=== PATIENT | female | born 1955 | race Caucasian/White ===

== ENCOUNTER 2016-10-02 12:34 | Inpatient (IN) | payer OTHER ==
[~2016-10-02] VITALS: Ht 177.8 cm; Wt 43.9 kg
[~2016-10-02 12:34] MED LIST: AMLO-147 PO; ASPI-664 PO; ATOR40TA68 PO; CARV6.2579 PO; LISI20TA11 PO; MONT10TA24 PO; ONDA4TAB14 PO; PARO-37 PO
[2016-10-02] MEDS ORDERED: SOD CHLORIDE 0.9% 500 ML IV STA (12:41)
[2016-10-02] MEDS ORDERED: CEFEPIME 2GM/50 ML (PMX) 50 ML IVPB STA (12:41)
[2016-10-02] MEDS ORDERED: SOD CHLORIDE 0.9% 1,000 ML IV STA (12:41)
[2016-10-02] MEDS ORDERED: VANCOMYCIN 1 GM (PMX) 250 ML IVPB ONE (13:00)
[2016-10-02] MEDS ORDERED: METF-382 PO (13:06)
[2016-10-02 13:41] LABS: BASOPHILS % 0.3 % (0.0-2.0); EOSINOPHILS % 0.1 % (0.0-7.0); HEMATOCRIT 33.5 % (37.0-47.0); HEMOGLOBIN 10.7 g/dl (12.0-16.0); LYMPHOCYTES % 29.2 % (15.0-51.0); MEAN CORPUSCULAR HEMOGLOBIN 29.4 pg (29.0-33.0); MEAN CORPUSCULAR VOLUME 91.8 fl (82.0-101.0); MEAN PLATELET VOLUME 7.4 fl (7.4-10.4); MONOCYTE # 0.1 10^3/ul (0.3-0.9); MONOCYTES % 3.9 % (0.0-11.0); NEUTROPHIL # 2.4 10^3/ul (1.6-7.5); NEUTROPHILS % 66.5 % (39.0-77.0); PLATELET COUNT 340 10^3/UL (140-440); RED BLOOD COUNT 3.65 10^6/ul (4.20-5.40); RED CELL DISTRIBUTION WIDTH 18.1 % (11.5-14.5); UNCORRECTED WBC 3.6 10^3/ul (4.8-10.8); WHITE BLOOD COUNT 3.6 10^3/ul (4.8-10.8)
[2016-10-02 13:50] LABS: ALBUMIN 2.6 g/dl (3.3-4.9); CHLORIDE 91 mmol/L (97-110); SODIUM 130 mmol/L (135-144)
[2016-10-02 13:51] LABS: POTASSIUM 4.9 mmol/L (3.5-5.1)
[2016-10-02 13:53] LABS: ALANINE AMINOTRANSFERASE 67 IU/L (13-69); ALBUMIN/GLOBULIN RATIO 0.55; ALKALINE PHOSPHATASE 83 IU/L (42-121); ANION GAP 11 (8-16); ASPARTATE AMINO TRANSFERASE 85 IU/L (15-46); BILIRUBIN,INDIRECT 0.1 mg/dl (0-1.1); BILIRUBIN,TOTAL 0.1 mg/dl (0.2-1.3); BLOOD UREA NITROGEN 19 mg/dl (7-20); CARBON DIOXIDE 33 mmol/L (21-31); CREATININE 0.26 mg/dl (0.44-1.00); GLUCOSE 79 mg/dl (70-220); TOTAL PROTEIN 7.3 g/dl (6.1-8.1)
[2016-10-02 13:54] LABS: CALCIUM 8.1 mg/dl (8.4-10.2)
[2016-10-02 13:56] LABS: CONDITION 1; LH ANALYZER COMMENTS 1
--- NOTE | 2016-10-02 13:57 | RADRPT ---
PROCEDURE: CT head CLINICAL INDICATION: Altered mental status. Sepsis. TECHNIQUE: Contiguous 2.5 mm axial images were obtained from the vertex to the skull base. No int ravenous contrast was administered. The calculated dose length product (DLP) = 630.2 mGy-cm. The CTDlvol = 44.97 mGy. One or more of the following dose reduction techniques were used: Automated ex posure control, adjustment of the mA and or KV according to patient size, or use of iterative recons truction technique. COMPARISON: 05/22/2016 FINDINGS: There is no acute intracranial hemorrhage or acute territorial infarct. No mass or mass effect is s een on this noncontrast study. As before there are bilateral basal ganglia, bilateral thalamic, rig ht pontine, and left cerebellar lacunar infarcts. No mass or mass effect is seen on this noncontras t study. There has advance for age cortical and central atrophy. Ventricles are prominent of propo rtion to degree of atrophy. 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 Note the ventricul ar size is unchanged from previous exam. There is questionable mucosal changes in the right maxilla ry sinus which is and partially visualized. Remaining paranasal sinuses are clear. There is probab le previous sinus surgery. The bony calvarium is unremarkable. Extensive bilateral carotid and radha tebral artery calcification is seen. IMPRESSION: 1. No acute intracranial hemorrhage or acute territorial infarct. 2. Multiple bilateral basal ganglial, bilateral thalamic, left cerebellar, and right pontine lacuna r infarcts. 3. Advance for age cortical and central atrophy. 4. Prominent ventricles. 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 5. Moderate cerebral arterial sclerosis RPTAT: HH .Jeremy Rodrigues MD, MD Date Time Electronically viewed and signed by .Jeremy Rodrigues MD, MD on 10/02/2016 13:56 .W/
[2016-10-02 14:00] LABS: INR 1.14; PROTIME 14.6 Sec (12.2-14.2); PT RATIO 1.1
[2016-10-02 14:01] LABS: PARTIAL THROMBOPLASTIN TIME 27.7 Sec (25.0-35.0)
[2016-10-02 14:18] LABS: TROPONIN-I < 0.012 ng/ml (0.00-0.12)
[2016-10-02 14:21] LABS: ADD UMIC NO; URINE BILIRUBIN (Dip) NEGATIVE (NEGATIVE); URINE BLOOD (Dip) NEGATIVE (NEGATIVE); URINE COLOR LT. YELLOW (YELLOW); URINE GLUCOSE (Dip) NEGATIVE (NEGATIVE); URINE KETONES (Dip) NEGATIVE (NEGATIVE); URINE LEUKOCYTE ESTERASE (Dip) NEGATIVE (NEGATIVE); URINE NITRITE (Dip) NEGATIVE (NEGATIVE); URINE TOTAL PROTEIN (Dip) NEGATIVE (NEGATIVE); URINE UROBILINOGEN (Dip) 1.0 E.U./dL (0.1-1.0)
[2016-10-02] MEDS ORDERED: ONDANSETRON 4 MG INJ IV PRN ×2 (14:30→16:30)
[2016-10-02] MEDS ORDERED: ACETAMINOPHEN 325 MG TAB PO PRN ×2 (14:30→16:30)
[2016-10-02] MEDS ORDERED: hydrALAzine 20 MG INJ IV ONE (14:30)
--- NOTE | 2016-10-02 14:34 | ERA ---
ER Documentation Chief Complaint Date/Time DATE: 10/02/16 TIME: 14:31 Chief Complaint Altered HPI Patient is a 61-year-old female with previous stroke who presents altered. Please note the history and physical exam is limited secondary to the patient's mental status. The patient was brought in by ambulance. She has had a history of stroke and had outpatient laboratory studies which showed that she was dehydrated. She was sent to the ER for workup and admission. She has chest congestion. She has a pressure ulcer. She is a DNR and DNI. ROS All systems reviewed and are negative except as per history of present illness. Medications Home Meds Reported Medications Metformin Hcl* (Metformin Hcl*) 500 Mg Tablet, 500 MG PO WITH BREAKFAST, #30 TAB 10/02/16 Lisinopril* (Lisinopril*) 20 Mg Tablet, 20 MG PO BID, #30 TAB 05/22/16 Aspirin* (Aspirin* EC) 81 Mg Tablet.dr, 81 MG PO DAILY, TAB 05/22/16 Paroxetine Hcl* (Paroxetine*) 20 Mg Tablet, 20 MG PO DAILY, TAB 03/03/14 Atorvastatin* (Atorvastatin*) 40 Mg Tablet, 40 MG PO HS, TAB 03/03/14 Carvedilol* (Carvedilol*) 6.25 Mg Tablet, 6.25 MG PO BID, TAB 03/03/14 Montelukast Sodium* (Montelukast Sodium*) 10 Mg Tablet, 10 MG PO DAILY, TAB 03/03/14 Discontinued Reported Medications Amlodipine Besylate* (Amlodipine Besylate*) 10 Mg Tablet, 10 MG PO DAILY, TAB 03/03/14 Discontinued Scripts Ondansetron (Ondansetron Odt) 4 Mg Tab.rapdis, 4 MG PO Q6H Y for NAUSEA AND/OR VOMITING, #30 TAB Prov:LINA ROLLINS MD 05/22/16 Allergies Allergies: Coded Allergies: No Known Drug Allergies (Unverified Allergy, Unknown, 10/02/16) PMhx/Soc History of Surgery: Yes (IVC FILTER) Anesthesia Reaction: No Hx Neurological Disorder: Yes (CVA) Hx Respiratory Disorders: Yes (ASTHMA, COPD, PULMONARY EDEMA) Hx Cardiac Disorders: Yes (HIGH CHOL, HTN) Hx Psychiatric Problems: No Hx Miscellaneous Medical Probl: Yes (PE, DVT, HIGH CHOL, BLEED INTRACRANIAL) Hx Alcohol Use: No Hx Substance Use: No Hx Tobacco Use: No FmHx Unable to obtain Physical Exam Vitals Vital Signs Date Time Temp Pulse Resp B/P Pulse Ox O2 Delivery O2 Flow Rate FiO2 10/02/16 13:05 95.4 61 18 167/118 99 Physical Exam Const: Chronically ill, cachexia Head: Atraumatic Eyes: Normal Conjunctiva ENT: Normal External Ears, Nose and Mouth. Neck: Full range of motion..~ No meningismus. Resp: Clear to auscultation bilaterally Cardio: Regular rate and rhythm, no murmurs Abd: Soft, non tender, non distended. Normal bowel sounds Skin: Pale Back: No midline or flank tenderness Ext: No cyanosis, or edema Neur: Altered and not responding to commands Result Diagram: 10/02/16 1310 10/02/16 1310 Results 24 hrs Laboratory Tests Test 10/02/16 13:10 10/02/16 13:50 Activated Partial Thromboplast Time 27.7Sec Alanine Aminotransferase (ALT/SGPT) 67IU/L Albumin 2.6g/dl Albumin/Globulin Ratio 0.55 Alkaline Phosphatase 83IU/L Anion Gap 11 Aspartate Amino Transf (AST/SGOT) 85IU/L Basophils # 0.010^3/ul Basophils % 0.3% Blood Morphology Comment Blood Urea Nitrogen 19mg/dl Calcium Level 8.1mg/dl Carbon Dioxide Level 33mmol/L Chloride Level 91mmol/L Creatinine 0.26mg/dl Direct Bilirubin 0.00mg/dl Eosinophils # 0.010^3/ul Eosinophils % 0.1% Globulin 4.70g/dl Glucose Level 79mg/dl Hematocrit 33.5% Hemoglobin 10.7g/dl INR International Normalized Ratio 1.14 Indirect Bilirubin 0.1mg/dl Lactic Acid Level 2.1mmol/L Lymphocytes # 1.010^3/ul Lymphocytes % 29.2% Mean Corpuscular Hemoglobin 29.4pg Mean Corpuscular Hemoglobin Concent 32.0g/dl Mean Corpuscular Volume 91.8fl Mean Platelet Volume 7.4fl Monocytes # 0.110^3/ul Monocytes % 3.9% Neutrophils # 2.410^3/ul Neutrophils % 66.5% Nucleated Red Blood Cells # 0.010^3/ul Nucleated Red Blood Cells % 0.0/100WBC Platelet Count 94100^3/UL Potassium Level 4.9mmol/L Prothrombin Time 14.6Sec Prothrombin Time Ratio 1.1 Red Blood Count 3.6510^6/ul Red Cell Distribution Width 18.1% Sodium Level 130mmol/L Total Bilirubin 0.1mg/dl Total Protein 7.3g/dl Troponin I < 0.012ng/ml White Blood Count 3.610^3/ul Urine Bilirubin NEGATIVE Urine Clarity CLEAR Urine Color LT. YELLOW Urine Glucose NEGATIVE% Urine Hemoglobin NEGATIVE Urine Ketones NEGATIVE Urine Leukocyte Esterase NEGATIVE Urine Nitrite NEGATIVE Urine Specific [place] 1.015 Urine Total Protein NEGATIVE Urine Urobilinogen 1.0 E.U./dL Urine pH 7.5 Current Medications Medications (Trade) Dose Ordered Sig/Vivek Route PRN Reason Start Time Stop Time Status Last Admin Dose Admin Cefepime HCl 50 ml @ 100 mls/hr ONCE STAT IVPB 10/02/16 12:41 10/02/16 13:10 DC 10/02/16 14:25 Vancomycin HCl 250 ml @ 125 mls/hr ONCE ONCE IVPB 10/02/16 13:00 10/02/16 14:59 Sodium Chloride 500 ml @ 500 mls/hr Q1H STAT IV 10/02/16 12:41 10/02/16 13:40 DC Sodium Chloride (NS) 1,000 ml @ 1,000 mls/hr Q1H STAT IV 10/02/16 12:41 10/02/16 13:40 DC 10/02/16 14:20 Ondansetron HCl (Zofran Inj) 4 mg BRIDGE ORDER PRN IV NAUSEA AND/OR VOMITING 10/02/16 14:30 10/03/16 14:29 Acetaminophen (Tylenol Tab) 650 mg ER BRIDGE PRN PO MILD PAIN/FEVER 10/02/16 14:30 10/03/16 14:29 Procedures/MDM EKG read by me: Rate/Rhythm: Junctional rate at 60 Intervals: Normal Impression: Junctional without evidence of ischemia CT head shows no acute abnormality per radiology. Chest x-ray is pending. Admit MDM: Patient's infectious symptoms have not stabilized and the patient is at risk of rapid decompensation. The patient will be admitted for careful hydration, antibiotic therapy, and infectious source control. Severe Sepsis criteria: Infectious source: Decubitus ulcer End organ damage indicated by: Lactate greater than 2 Sepsis Management: Time of recognition of sepsis: 13:10 Within 3 hours of recognition: Blood cultures x 2 before broad-spectrum antibiotics: Yes 30 ml/kg NS bolus Completed Initial lactate 2.1 Repeat lactate pending Time of recognition of septic shock: No septic shock Septic Shock Assessment: Any lactic acid > 4.0 No Persistent hypotension (SBP < 90 or 40 mmHg drop, MAP < 65) despite 30 mL/kg IV fluid bolus No Volume Re-assessment for Septic Shock (post 30 ml/kg bolus): No septic shock at this time Persistent Hypotension Treatment: Comfort care No Central line Not Required Vasopressor started Not required I considered further perfusion assessment with CVP measurement, SCVO2, bedside ultrasound volume assessment, passive leg raise, trial of further fluid bolus. And proceeded with 30 ml/kg fluid bolus of NSS, broad spectrum antibiotics, and admission. Accepting Care Team Current data and ongoing care discussed. Admitting Physician: Dr. Lagunas as the patient is preferred [employer] insurance follow up specialist(s): None Outstanding Data: Culture results and repeat lactic acid Critical Care: Critical care time 35 minutes excluding all billable procedures Emergent fluid management while maintaining close respiratory support. Provision of immediate and broad-spectrum antibiotic therapy. Simultaneous assessment for possible sources in order to direct targeted therapy. Consideration for invasive and chemical support to prevent cardiopulmonary collapse. Departure Diagnosis: Primary Impression: Dehydration Additional Impressions: Pressure ulcer Qualified Code: L89.90 - Pressure ulcer, unspecified pressure ulcer stage Anemia Qualified Code: D64.9 - Anemia, unspecified type Leukopenia Qualified Code: D72.819 - Leukopenia, unspecified type Altered mental status Qualified Code: R41.82 - Altered mental status, unspecified altered mental status type Severe sepsis Condition: LINA Juarez MD Oct 02, 2016 14:34
[2016-10-02] MEDS ORDERED: NACL 0.9% 3 ML SYG IV SCH (16:30)
[2016-10-02] MEDS ORDERED: DOCUSATE SODIUM 100 MG CAP PO PRN (16:30)
[2016-10-02] MEDS ORDERED: HYDROCODONE/APAP (5/325) TAB PO PRN (16:30)
[2016-10-02] MEDS ORDERED: morphine 2 MG INJ IV PRN (16:30)
[2016-10-02] MEDS ORDERED: LORAZEPAM 2 MG INJ IV PRN (16:30)
[2016-10-02] MEDS ORDERED: MAGNESIUM HYDROXIDE 30ML CUP PO PRN (16:30)
[2016-10-02] MEDS ORDERED: NA PHOSPHATE/BIPHOS 133 ML ENEMA PR PRN (16:30)
[2016-10-02] MEDS ORDERED: NITROGLYCERIN (SL) 0.4 MG TAB SL PRN (16:30)
[2016-10-02] MEDS ORDERED: ALBUTEROL/IPRATROPIUM (NEB) 3 ML AMP HHN PRN (16:30)
[2016-10-02] MEDS ORDERED: DIPHENHYDRAMINE 50 MG INJ IV ONE (17:00)
--- NOTE | 2016-10-02 17:10 | HP ---
DATE OF ADMISSION: 10/02/2016 CHIEF COMPLAINT: Sent in for abnormal lab values. HISTORY OF PRESENT ILLNESS: A 61-year-old female with past medical history based on records of COPD and asthma, pulmonary edema, prior stroke, DVT, and PE with prior IVC filter placement, prior intra cranial bleed, high cholesterol, diabetes type 2 who was brought in by family members. Apparently, the patient had gone to her primary care doctor, Dr. Virgen, about a week ago and had what was presu med to be a BMP drawn. They got the results back today and were told that there was some "dehydrati on" on the labs and was told to come into the ER today. REVIEW OF SYSTEMS: The patient's review of systems are essentially negative. So no chest pain, lucretia rtness breath. No upper or lower GI bleeding. No fevers or chills. No nausea, vomiting, no diarrh ea or constipation. No headaches or dizziness, loss of consciousness. When she came in today, she was found with a slightly low sodium level of 130, although her BUN and creatinine were essentially normal. She had a head CT today that was essentially negative for acute territorial infarcts. PAST MEDICAL HISTORY: As stated above. ALLERGIES: NO KNOWN DRUG ALLERGIES. MEDICATIONS AT HOME: 1. Atorvastatin 40 mg at bedtime. 2. Coreg 6.25 mg b.i.d. 3. Lisinopril 20 mg b.i.d. 4. Aspirin 81 mg daily. 5. Paroxetine 20 mg daily. 6. Singulair 10 mg daily. 7. Metformin 500 mg every morning. PAST SURGICAL HISTORY: She apparently has had a hysterectomy in the past and an IVC filter placemen t in the past and possible surgery for incontinence in the past. FAMILY HISTORY: Noncontributory. SOCIAL HISTORY: Negative for smoking, drinking, or IV drug abuse. PHYSICAL EXAMINATION: VITAL SIGNS: T-max 95.4, pulse 61, respirations 18, blood pressure 167/118, saturating at 99% on ro om air. GENERAL: The patient is lying in bed, appears slightly cachectic. Otherwise, no acute distress. HEENT: Pupils equal, round, react to light. Extraocular muscles intact. NECK: Supple. No thyromegaly. LUNGS: Clear to auscultation bilaterally. CARDIOVASCULAR: S1, S2 heard. No rubs or gallops. ABDOMEN: Soft, nontender, nondistended. Normal bowel sounds. No rebound or guarding. MUSCULOSKELETAL: She has some muscle wasting noted on the lower extremities, but otherwise no lower extremity edema bilaterally. NEUROLOGIC: No signs of any focal deficits. LABORATORIES: WBC 3.6, hemoglobin 10.7, hematocrit 33.5, platelets 340. Sodium 130, potassium 4.9, chloride 91, CO2 of 33, BUN 19, creatinine 0.26, glucose of 79. LFTs are normal. Troponin is nega tive x1. Coags are normal. UA shows negative nitrites and negative leukocyte esterase. Again, the head CT results as mentioned above in the HPI. ASSESSMENT AND PLAN: A 61-year-old female sent in by outside doctor because of abnormal labs and al so some failure to thrive. 1. Failure to thrive. We will admit her to med/surg floor. We will give her IV fluids. Check TSH , A1c, and lipid panel. Monitor her symptoms and vital signs very carefully. 2. Abnormal lab values. Apparently, she had some dehydration. Her BUN and creatinine levels are e ssentially normal today. We will still, nevertheless, give her IV fluids and check an echocardiogra m and then consider nutrition consult. 3. Type 2 diabetes. Again, we will check an A1c. We will put her on sliding scale insulin. 4. Prior strokes. Again, her head CT was negative. Consider MRI for now, although she does not javed ve any overt focal deficits. 5. History of asthma, chronic obstructive pulmonary disease. No present issues. Continue DuoNebs p.r.n. 6. Prior history of deep vein thrombosis and pulmonary embolism. Again, she has an inferior vena c rinku filter in place. Continue to monitor for now. 7. Gastrointestinal prophylaxis. We will put her on proton pump inhibitor. 8. Deep vein thrombosis prophylaxis. Sequential compression devices. 9. We will get PT, OT consults and speech therapy consult as well. Dictated By: FORREST SINGER Conf#: [id number] DID#: [id number]
--- NOTE | 2016-10-02 18:39 | RADRPT ---
PROCEDURE: Chest x-ray CLINICAL INDICATION: Sepsis TECHNIQUE: Chest single view COMPARISON: 03/03/2014 FINDINGS: There is stable mild cardiomegaly and atherosclerotic aortic calcification. The aortic knob is slig htly more prominent than the previous study suggesting aneurysmal dilatation. Recommend a chest CT for further evaluation. Bony vessels normal in caliber. Lungs clear. Costophrenic angles are kylie p. Bones are osteopenic. There is mild to moderate degenerative change right glenohumeral joint. IMPRESSION: 1. Suspect aneurysmal dilatation of the thoracic aorta. Recommend chest CT for further evaluation. 2. Mild cardiomegaly and an sclerotic aortic calcification. 3. No CHF or pneumonia RPTAT: HH .Jeremy Rodrigues MD, Date Time Electronically viewed and signed by .Jeremy Rodrigues MD, on 10/02/2016 18:38 .W/
[2016-10-02 19:24] VITALS: TEMP 98
[2016-10-02 20:00] VITALS: BP 159/80; PULSE 88; RESP 18
[2016-10-02] MEDS: SOD CHLORIDE 0.9% 1,000 ML IV SCH (22:01)
[2016-10-02] MEDS: ATORVASTATIN 40 MG TAB PO SCH (22:02)
[2016-10-02 22:13] VITALS: Ht 177.8 cm; Wt 43.9 kg
[2016-10-03] MEDS: SOD CHLORIDE 0.9% 1,000 ML IV SCH ×3 (02:28→17:00)
[2016-10-03] MEDS: PANTOPRAZOLE 40 MG INJ IV SCH (05:29)
[2016-10-03 08:08] VITALS: BP 158/97; RESP 18
[2016-10-03] MEDS: ASPIRIN (EC) 81 MG TAB PO SCH (08:51)
[2016-10-03] MEDS: PAROXETINE 20 MG TAB PO SCH (08:51)
[2016-10-03] MEDS: MONTELUKAST 10 MG TAB PO SCH (08:51)
--- NOTE | 2016-10-03 10:41 | PN ---
Date/Time of Note Date/Time of Note DATE: 10/03/16 TIME: 10:37 Assessment/Plan VTE Prophylaxis VTE Prophylaxis Intervention: SCD's Lines/Catheters IV [facility]ter [facility]from [facility] Peripheral IV Urinary Cath still in place: No Assessment/Plan Chief Complaint/Hosp Course ASSESSMENT AND PLAN: 61-year-old female sent in by outside doctor because of abnormal labs and also some failure to thrive. 1. Failure to thrive - seen by ST team - continue IV fluids. - f/u TSH, A1c, and lipid panel. - Monitor her symptoms and vital signs very carefully. 2. Abnormal lab values. Apparently, she had some dehydration. Her BUN and creatinine levels are essentially nL on admission. -continue IV fluids - f/u echocardiogram and then consider nutrition consult. 3. Type 2 diabetes - f/u A1c - sliding scale insulin. 4. Prior strokes. Again, her head CT was negative. Consider MRI for now, although she does not have any overt focal deficits. 5. History of asthma, chronic obstructive pulmonary disease. No present issues. Continue DuoNebs p.r.n. 6. Prior history of deep vein thrombosis and pulmonary embolism. Again, she has an inferior vena cava filter in place. Continue to monitor for now. 7. Gastrointestinal prophylaxis - proton pump inhibitor. 8. Deep vein thrombosis prophylaxis. Sequential compression devices. 9. thoracic aorta anyerusm - found in CXR - no bleeding noted - check CT chest for further eval Problems: Subjective 24 Hr Interval Summary Free Text/Dictation Pt a bit more alert today, no acute events overnight. Exam/Review of Systems Vital Signs Vitals Vital Signs Date Time Temp Pulse Resp B/P Pulse Ox O2 Delivery O2 Flow Rate FiO2 10/03/16 08:08 97.3 60 18 158/97 100 10/02/16 20:00 Room Air Intake and Output 10/02/16 10/02/16 10/03/16 15:00 23:00 07:00 Intake Total 1000 ml Balance 1000 ml Exam GENERAL: The patient is lying in bed, family at bedside, Otherwise, no acute distress. HEENT: Pupils equal, round, react to light. Extraocular muscles intact. NECK: Supple. No thyromegaly. LUNGS: Clear to auscultation bilaterally. CARDIOVASCULAR: S1, S2 heard. No rubs or gallops. ABDOMEN: Soft, nontender, nondistended. Normal bowel sounds. No rebound or guarding. MUSCULOSKELETAL: She has some muscle wasting noted on the lower extremities, but otherwise no lower extremity edema bilaterally. NEUROLOGIC: No signs of any focal deficits. Results Result Diagram: 10/02/16 1310 10/02/16 1310 Results 24 hrs Laboratory Tests Test 10/02/16 13:10 10/02/16 13:50 10/02/16 20:30 10/02/16 23:00 Activated Partial Thromboplast Time 27.7 Alanine Aminotransferase (ALT/SGPT) 67 Albumin 2.6 L Albumin/Globulin Ratio 0.55 Alkaline Phosphatase 83 Anion Gap 11 Aspartate Amino Transf (AST/SGOT) 85 H Basophils # 0.0 Basophils % 0.3 Blood Morphology Comment Blood Urea Nitrogen 19 Calcium Level 8.1 L Carbon Dioxide Level 33 H Chloride Level 91 L Creatinine 0.26 L Direct Bilirubin 0.00 Eosinophils # 0.0 Eosinophils % 0.1 Globulin 4.70 H Glucose Level 79 Hematocrit 33.5 #L Hemoglobin 10.7 #L INR International Normalized Ratio 1.14 Indirect Bilirubin 0.1 Lactic Acid Level 2.1 0.9 0.8 Lymphocytes # 1.0 Lymphocytes % 29.2 Mean Corpuscular Hemoglobin 29.4 Mean Corpuscular Hemoglobin Concent 32.0 Mean Corpuscular Volume 91.8 Mean Platelet Volume 7.4 # Monocytes # 0.1 L Monocytes % 3.9 Neutrophils # 2.4 Neutrophils % 66.5 Nucleated Red Blood Cells # 0.0 Nucleated Red Blood Cells % 0.0 Platelet Count 340 # Potassium Level 4.9 Prothrombin Time 14.6 H Prothrombin Time Ratio 1.1 Red Blood Count 3.65 L Red Cell Distribution Width 18.1 H Sodium Level 130 L Total Bilirubin 0.1 L Total Protein 7.3 Troponin I < 0.012 White Blood Count 3.6 #L Urine Bilirubin NEGATIVE Urine Clarity CLEAR Urine Color LT. YELLOW Urine Glucose NEGATIVE Urine Hemoglobin NEGATIVE Urine Ketones NEGATIVE Urine Leukocyte Esterase NEGATIVE Urine Nitrite NEGATIVE Urine Specific [place] 1.015 Urine Total Protein NEGATIVE Urine Urobilinogen 1.0 E.U./dL Urine pH 7.5 Free Thyroxine 1.36 Medications Medications Current Medications Ondansetron HCl (Zofran Inj) 4 mg Q6H PRN IV NAUSEA AND/OR VOMITING; Start at 16:30 Acetaminophen (Tylenol Tab) 650 mg Q6H PRN PO PAIN LEVEL 1-3 OR FEVER; Start at 16:30 Acetaminophen/ Hydrocodone Bitart ([place] (5/325)) 1 tab Q6H PRN PO MODERATE PAIN LEVEL 4-6; Start 10/02/16 at 16:30 Morphine Sulfate (morphine) 2 mg Q4H PRN IV SEVERE PAIN LEVEL 7-10; Start 10/02 at 16:30 Docusate Sodium (Colace) 100 mg Q12H PRN PO CONSTIPATION; Start 10/02/16 at 16: 30 Magnesium Hydroxide (Milk Of Mag) 30 ml DAILY PRN PO CONSTIPATION; Start at 16:30 Sodium Biphosphate/ Sodium Phosphate (Fleet Enema) 133 ml DAILY PRN [place] CONSTIPATION; Start 10/02/16 at 16:30 Pantoprazole (Protonix Iv) 40 mg DAILY@06 IV Last administered on 10/03/16 05: 29; Admin Dose 40 MG; Start 10/03/16 at 06:00 Lorazepam 0.5 mg 0.5 mg Q6H PRN IV ANXIETY; Start 10/02/16 at 16:30 Sodium Chloride (NS) 1,000 ml @ 100 mls/hr Q10H IV Last administered on 05:32; Admin Dose 100 MLS/HR; Start 10/02/16 at 16:28 Hydralazine HCl (Apresoline) 10 mg Q6H PRN IV ELEVATED BLOOD PRESSURE; Start at 16:30 Nitroglycerin (Nitroglycerin (Sl Tab) 0.4 Mg) 1 tab Q5M PRN SL ANGINA; Start at 16:30 Aspirin (Halfprin) 81 mg DAILY PO Last administered on 10/03/16 08:51; Admin Dose 81 MG; Start 10/03/16 at 09:00 Atorvastatin Calcium (Lipitor) 40 mg HS PO Last administered on 10/02/16 22:02 ; Admin Dose 40 MG; Start 10/02/16 at 21:00 Carvedilol (Coreg) 6.25 mg BID PO Last administered on 10/03/16 08:51; Admin Dose 6.25 MG; Start 10/02/16 at 21:00 Montelukast Sodium (Singulair) 10 mg DAILY PO Last administered on 10/03/16 08: 51; Admin Dose 10 MG; Start 10/03/16 at 09:00 Paroxetine HCl (Paxil) 20 mg DAILY PO Last administered on 10/03/16 08:51; Admin Dose 20 MG; Start 10/03/16 at 09:00 FORREST FELTON Oct 03, 2016 10:41
[2016-10-03] MEDS ORDERED: GLUCAGON 1 MG INJ IM PRN (11:00)
[2016-10-03] MEDS ORDERED: DEXTROSE 50% 50 ML SYRINGE IV PRN ×2 (11:00)
[2016-10-03] MEDS ORDERED: GLUCOSE GEL 15 GRAM TUBE BUCCAL PRN (11:00)
[2016-10-03] MEDS ORDERED: GLUCOSE GEL 15 GRAM TUBE PO PRN ×2 (11:00)
[2016-10-03] MEDS: INSULIN ASPART [NOVOLOG] 3 ML PEN SC SCH ×3 (12:15→20:56)
[2016-10-03 12:34] LABS: BASOPHILS % 0.3 % (0.0-2.0); EOSINOPHILS % 0.1 % (0.0-7.0); HEMATOCRIT 34.5 % (37.0-47.0); HEMOGLOBIN 11.1 g/dl (12.0-16.0); LYMPHOCYTES # 0.8 10^3/ul (0.8-2.9); LYMPHOCYTES % 23.9 % (15.0-51.0); MEAN CORPUSCULAR HEMOGLOBIN 29.7 pg (29.0-33.0); MEAN CORPUSCULAR VOLUME 92.8 fl (82.0-101.0); MEAN PLATELET VOLUME 7.4 fl (7.4-10.4); MONOCYTE # 0.1 10^3/ul (0.3-0.9); MONOCYTES % 2.6 % (0.0-11.0); NEUTROPHIL # 2.5 10^3/ul (1.6-7.5); NEUTROPHILS % 73.1 % (39.0-77.0); PLATELET COUNT 343 10^3/UL (140-440); RED BLOOD COUNT 3.72 10^6/ul (4.20-5.40); RED CELL DISTRIBUTION WIDTH 17.8 % (11.5-14.5); UNCORRECTED WBC 3.5 10^3/ul (4.8-10.8); WHITE BLOOD COUNT 3.5 10^3/ul (4.8-10.8)
[2016-10-03 12:36] LABS: CONDITION 1; LH ANALYZER COMMENTS 1
[2016-10-03 12:41] LABS: POTASSIUM 4.1 mmol/L (3.5-5.1)
[2016-10-03 12:43] LABS: CREATININE 0.3 mg/dl (0.44-1.00)
[2016-10-03 12:44] LABS: CALCIUM 7.8 mg/dl (8.4-10.2)
--- NOTE | 2016-10-03 12:44 | RADRPT ---
Echocardiogram Report Patient Name: JESSICA TROY Gender: Female Date: 1955 Study Date: 03-Oct-2016 Servomechanism Assembler: Reji Merida [facility] Location: [address] [facility]. Physician: FORREST FELTON Quality: Good Procedures: Transthoracic echocardiogram with complete 2D, M-Mode, and doppler examination. Indications: Shortness of breath. 2D/M Mode Doppler Measurement Value Normal Ranges Measurement Value Normal Ranges LVIDd 2D 4.3 3.5 - 5.6 cm AV Peak Mor 0.9 m/sec LVIDs 2D 3.1 2.1 - 4.1 cm AV Peak PG 3.0 mmHg LVPWd 2D 1.0 0.6 - 1.1 cm LVOT Peak Mor 0.8 m/sec IVSd 2D 0.9 0.6 - 1.1 cm LVOT Peak PG 2.4 mmHg AoR Diam 2D 2.5 2.0 - 3.7 cm MV E Peak Mor 0.3 m/sec EDV 2D 81.5 cm3 MV A Peak Mor 0.7 m/sec ESV 2D 28.7 cm3 MV E/A 0.5 LA Dimen 2D 3.4 2.3 - 4.0 cm MV Decel Time 160 msec MV Decel [place] 2 MV E/A 0.5 TR Peak Mor 2.2 m/sec TR Peak PG 19.2 mmHg RVSP 22.0 mmHg Findings Left Ventricle: Normal left ventricular wall thickness. Mild global left ventricular systolic dysfunction. Ejection fraction is visually estimated at 40 %. Tissue Doppler/Mitral Doppler indices are consistent with impaired relaxation (Stage I diastolic dysfunction). Right Ventricle: Normal right ventricular size. Normal right ventricular systolic function. Left Atrium: The left atrium is normal in size. Right Atrium: The right atrium is normal in size. Mitral Valve: Mitral valve leaflets appear mildly thickened. Mild mitral annular calcification. Mild mitral valve regurgitation. Aortic Valve: Aortic cusps appear mildly calcified. Trace aortic valve regurgitation. Tricuspid Valve: Normal appearance and function of the tricuspid valve with trace physiologic regurgitation. Estimated peak PA systolic pressure 22 mmHg. Pericardium: Normal pericardium with no significant pericardial effusion. Aorta: Normal aortic root. IVC: Normal size and normal respiratory collapse consistent with normal right atrial pressure. Conclusions 1.Normal left ventricular wall thickness. Mild global left ventricular systolic dysfunction. Ejection fraction is visually estimated at 40 %. Tissue Doppler/Mitral Doppler indices are consistent with impaired relaxation (Stage I diastolic dysfunction). 2.Mitral valve leaflets appear mildly thickened. Mild mitral annular calcification. Mild mitral valve regurgitation. 3.Aortic cusps appear mildly calcified. Trace aortic valve regurgitation. 4.Normal appearance and function of the tricuspid valve with trace physiologic regurgitation. Estimated peak PA systolic pressure 22 mmHg. Electronically Signed By: Palomo Bajwa 03-Oct-2016 12:43:59 -0800 Patient Name: ILIANA ROWE JESSICA Study Date: 03-Oct-[id number]
[2016-10-03] MEDS ORDERED: IODIXANOL LOCM 100 ML BTL ONE (16:13)
[2016-10-03] MEDS ORDERED: IODIXANOL LOCM 50 ML BTL ONE (16:13)
[2016-10-03] MEDS ORDERED: SOD CHLORIDE 0.9% 100 ML ONE (16:13)
--- NOTE | 2016-10-03 19:48 | RADRPT ---
PROCEDURE: CTA Chest. CLINICAL INDICATION: Thoracic aortic aneurysm. TECHNIQUE: The study was performed utilizing a CT scanner. Direct spiral axial sections were obtai tate from the thoracic inlet to the upper abdomen with the use of 100 cc of Omnipaque 350 nonionic in travenous contrast material and reformatted. Coronal and sagittal reformations were obtained. The im ages were reviewed on a PACS workstation. CTDI: 53 mGy and DLP: 200 mGy-cm. COMPARISON: No prior studies are available for comparison. ABNORMAL RESULTS: 17 MM NEOPLASM IN RIGHT APEX; AND LARGE THORACIC AORTIC ANEURYSM. FINDINGS: Large thoracic aortic aneurysm at the left arch measuring 67 x 50 x 45 mm. 17 mm spiculated nodule in right apex represents neoplasm until proven otherwise. 10 mm nodule in ri ght apex is nonspecific. Hyperinflation of COPD in changes of centrolobular emphysema. Small bilateral pleural effusion with dependent atelectasis, right greater than left. No evident hilar mediastinal adenopathy. Plantar a nd osseous structures otherwise unremarkable. Ascites in right upper quadrant. Partially visualized possible small bowel ileus, otherwise nonspec ific. Mildly prominent pancreatic duct measures up to about 2-[address] examination of t he abdomen may be of further use. Partially visualized abdominal viscera otherwise unremarkable. IMPRESSION: 1. Large thoracic aortic aneurysm measuring up to 67 mm. 2. 17 mm spiculated nodule in right apex represents neoplasm until proven otherwise. 3. Bilateral small pleural effusions with atelectasis, right greater than left. 4. Ascites. ABNORMAL RESULTS: 17 MM NEOPLASM IN RIGHT APEX; AND LARGE THORACIC AORTIC ANEURYSM. RPTAT: [facility] Physician Suraj Date Time Electronically viewed and signed by Physician Suraj on 10/03/2016 19:48 RS/
[2016-10-03 19:54] VITALS: BP 149/94; RESP 20
[2016-10-03] MEDS: ATORVASTATIN 40 MG TAB PO SCH (20:54)
--- NOTE | 2016-10-03 23:23 | CONS ---
Date/Time of Note Date/Time of Note DATE: 10/03/16 TIME: 23:22 Assessment/Plan Assessment/Plan Chief Complaint/Hosp Course 1. Multiple decubitus ulcers with necrotic tissues. -offload -nutrition optimization -vit c -local care debridement prn 2. Functional quadriplegia with contracted state with history of previous strokes -Offload -Nutrition optimization -Medical optimization 3. Failure to thrive and persistent chronic decubitus ulcerations. Family was encouraged to place patient in longterm however they think she gets better care at home -Nutrition optimization -Offloading -Medical optimization 4. Hypoalbuminemia and hypocalcemia, multifactorial -Nutritional optimization 5. Hyponatremia with possible dehydration -Judicious fluid management and correct slowly 6. Anemia without evidence of acute blood loss -Monitor 7. Type 2 diabetes -Nutrition and medication optimization 8. 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 She was admitted after her blood work at Dr. Henry's office identify dehydration. Patient is noncommunicative and most of the information is obtained from family members and chart. There is no report of fever, chills, shortness of breath, vomiting, bloating, joint swelling , or rashes. No pyuria. Positive bowel function. She has multiple wounds. Family member has decided not to be aggressive with her surgical care but to maintain her wounds. Constitutional: No chills, No febrile Eyes: No discharge, No redness ENT: No bleeding, No discharge, No dysphagia Respiratory: No shortness of breath, No sputum Cardiovascular: No edema Gastrointestinal: decreased appetite, passing stool, No vomiting Genitourinary: No bleeding Musculoskeletal: restricted range of motion Skin: bruising, laceration, skin lesions Neurologic: confusion, No seizure Endocrine: No polydypsia, No polyuria Lymphatic: No adenopathy, No tender nodes Psychological: No nl mood/affect Immunologic: No rhinitis Past Medical History Functional quadriplegia Failure to thrive Hypoalbuminemia Hypocalcemia Hyponatremia Anemia Leukopenia Dehydration Type 2 diabetes Prior strokes Asthma Chronic obstructive pulmonary disease History of DVT & PE Contracted state Multiple decubitus ulcerations Past Surgical History Hysterectomy IVC filter placement Wound debridements Family History Significant Family History: no pertinent family hx Social History Alcohol Use: none Smoking Status: Never smoker Drug Use: none Exam/Review of Systems Vital Signs Vitals Vital Signs Date Time Temp Pulse Resp B/P Pulse Ox O2 Delivery O2 Flow Rate FiO2 10/03/16 19:54 97.4 67 20 149/94 100 10/02/16 20:00 Room Air Intake and Output 10/02/16 10/02/16 10/03/16 15:00 23:00 07:00 Intake Total 1000 ml Balance 1000 ml Exam Constitutional: other (awake but unable to communicate or mobilize), No distress, No oriented Psych: anxiety, confusion Head: normocephalic, No atraumatic Eyes: PERRL, nl conjunctiva, No icteric ENMT: nl external ears & nose, No mucosa pink and moist Neck: non-tender (Baseline rigidity), No jvd, No supple Respiratory: normal air movement, No congested cough, No labored breathing Cardiovascular: regular rate and rhythm, No edema Gastrointestinal: non-tender, soft, No distended Musculoskeletal: No joint tenderness, No nl extremities to inspection, No nl gait and stance Extremities: No calf tenderness, No edema, No normal pulses Neurological: No nl mental status, No nl speech, No nl strength Skin: rash or lesions (multiple decubitus ulcerations as per RN note and pictures), No diaphoresis, No nl turgor Results Result Diagram: 10/03/16 1200 10/03/16 1200 Results 24 hrs Laboratory Tests Test 10/03/16 12:00 10/03/16 12:35 10/03/16 17:46 10/03/16 20:42 Anion Gap 11 Basophils # 0.0 Basophils % 0.3 Blood Morphology Comment Blood Urea Nitrogen 28 H Calcium Level 7.8 L Carbon Dioxide Level 26 Chloride Level 99 Creatinine 0.30 L Eosinophils # 0.0 Eosinophils % 0.1 Glucose Level 79 Hematocrit 34.5 L Hemoglobin 11.1 L Lymphocytes # 0.8 Lymphocytes % 23.9 Mean Corpuscular Hemoglobin 29.7 Mean Corpuscular Hemoglobin Concent 32.0 Mean Corpuscular Volume 92.8 Mean Platelet Volume 7.4 Monocytes # 0.1 L Monocytes % 2.6 Neutrophils # 2.5 Neutrophils % 73.1 Nucleated Red Blood Cells # 0.0 Nucleated Red Blood Cells % 0.0 Platelet Count 343 Potassium Level 4.1 Red Blood Count 3.72 L Red Cell Distribution Width 17.8 H Sodium Level 132 L White Blood Count 3.5 L Bedside Glucose 74 132 150 Medications Medications Current Medications Ondansetron HCl (Zofran Inj) 4 mg Q6H PRN IV NAUSEA AND/OR VOMITING; Start at 16:30 Acetaminophen (Tylenol Tab) 650 mg Q6H PRN PO PAIN LEVEL 1-3 OR FEVER; Start at 16:30 Acetaminophen/ Hydrocodone Bitart ([place] (5/325)) 1 tab Q6H PRN PO MODERATE PAIN LEVEL 4-6; Start 10/02/16 at 16:30 Morphine Sulfate (morphine) 2 mg Q4H PRN IV SEVERE PAIN LEVEL 7-10; Start 10/02 at 16:30 Docusate Sodium (Colace) 100 mg Q12H PRN PO CONSTIPATION; Start 10/02/16 at 16: 30 Magnesium Hydroxide (Milk Of Mag) 30 ml DAILY PRN PO CONSTIPATION; Start at 16:30 Sodium Biphosphate/ Sodium Phosphate (Fleet Enema) 133 ml DAILY PRN [place] CONSTIPATION; Start 10/02/16 at 16:30 Pantoprazole (Protonix Iv) 40 mg DAILY@06 IV Last administered on 10/03/16 05: 29; Admin Dose 40 MG; Start 10/03/16 at 06:00 Lorazepam 0.5 mg 0.5 mg Q6H PRN IV ANXIETY; Start 10/02/16 at 16:30 Sodium Chloride (NS) 1,000 ml @ 100 mls/hr Q10H IV Last administered on 17:00; Admin Dose 100 MLS/HR; Start 10/02/16 at 16:28 Hydralazine HCl (Apresoline) 10 mg Q6H PRN IV ELEVATED BLOOD PRESSURE; Start at 16:30 Nitroglycerin (Nitroglycerin (Sl Tab) 0.4 Mg) 1 tab Q5M PRN SL ANGINA; Start at 16:30 Aspirin (Halfprin) 81 mg DAILY PO Last administered on 10/03/16 08:51; Admin Dose 81 MG; Start 10/03/16 at 09:00 Atorvastatin Calcium (Lipitor) 40 mg HS PO Last administered on 10/03/16 20:54 ; Admin Dose 40 MG; Start 10/02/16 at 21:00 Carvedilol (Coreg) 6.25 mg BID PO Last administered on 10/03/16 20:54; Admin Dose 6.25 MG; Start 10/02/16 at 21:00 Montelukast Sodium (Singulair) 10 mg DAILY PO Last administered on 10/03/16 08: 51; Admin Dose 10 MG; Start 10/03/16 at 09:00 Paroxetine HCl (Paxil) 20 mg DAILY PO Last administered on 10/03/16 08:51; Admin Dose 20 MG; Start 10/03/16 at 09:00 Diagnostic Test (Pha) (Accucheck) 1 ea 02 XX ; Start 10/04/16 at 02:00 Miscellaneous Information 1 ea NOTE XX ; Start 10/03/16 at 11:00 Glucose (Glutose) 15 gm Q15M PRN PO DECREASED GLUCOSE; Start 10/03/16 at 11:00 Glucose (Glutose) 22.5 gm Q15M PRN PO DECREASED GLUCOSE; Start 10/03/16 at 11:00 Dextrose (D50w Syringe) 25 ml Q15M PRN IV DECREASED GLUCOSE; Start 10/03/16 at 11:00 Dextrose (D50w Syringe) 50 ml Q15M PRN IV DECREASED GLUCOSE; Start 10/03/16 at 11:00 Glucagon (Glucagen) 1 mg Q15M PRN IM DECREASED GLUCOSE; Start 10/03/16 at 11:00 Glucose (Glutose) 15 gm Q15M PRN BUCCAL DECREASED GLUCOSE; Start 10/03/16 at 11: 00 Collagenase (Santyl) 1 applic DAILY TOP ; Start 10/04/16 at 09:00 KENROY MURILLO MD Oct 03, 2016 23:22
[2016-10-04] MEDS: ACCUCHECK XX SCH (02:00)
[2016-10-04] MEDS: SOD CHLORIDE 0.9% 1,000 ML IV SCH (02:22)
[2016-10-04] MEDS: PANTOPRAZOLE 40 MG INJ IV SCH (06:22)
[2016-10-04 07:34] VITALS: BP 155/95; RESP 16
[2016-10-04 07:38] LABS: BASOPHILS % 0.2 % (0.0-2.0); EOSINOPHILS % 0.1 % (0.0-7.0); HEMATOCRIT 28.9 % (37.0-47.0); HEMOGLOBIN 9.3 g/dl (12.0-16.0); LYMPHOCYTES # 1.1 10^3/ul (0.8-2.9); LYMPHOCYTES % 22.2 % (15.0-51.0); MEAN CORPUSCULAR HGB CONC 32.2 g/dl (32.0-37.0); MEAN CORPUSCULAR VOLUME 93.2 fl (82.0-101.0); MEAN PLATELET VOLUME 7.7 fl (7.4-10.4); MONOCYTE # 0.2 10^3/ul (0.3-0.9); NEUTROPHIL # 3.7 10^3/ul (1.6-7.5); NEUTROPHILS % 73.5 % (39.0-77.0); PLATELET COUNT 299 10^3/UL (140-440); RED CELL DISTRIBUTION WIDTH 17.7 % (11.5-14.5); UNCORRECTED WBC 5.1 10^3/ul (4.8-10.8); WHITE BLOOD COUNT 5.1 10^3/ul (4.8-10.8)
[2016-10-04 07:40] LABS: CONDITION 1; LH ANALYZER COMMENTS 1
[2016-10-04 07:47] LABS: POTASSIUM 3.7 mmol/L (3.5-5.1)
[2016-10-04 07:50] LABS: CREATININE 0.36 mg/dl (0.44-1.00)
[2016-10-04 07:51] LABS: CALCIUM 7.5 mg/dl (8.4-10.2)
[2016-10-04] MEDS: INSULIN ASPART [NOVOLOG] 3 ML PEN SC SCH ×4 (08:04→21:00)
[2016-10-04] MEDS: PAROXETINE 20 MG TAB PO SCH (09:17)
[2016-10-04] MEDS: ASPIRIN (EC) 81 MG TAB PO SCH (09:17)
[2016-10-04] MEDS: MONTELUKAST 10 MG TAB PO SCH (09:17)
[2016-10-04] MEDS: COLLAGENASE 30 GM TUBE TOP SCH (09:17)
--- NOTE | 2016-10-04 10:18 | PN ---
Date/Time of Note Date/Time of Note DATE: 10/04/16 TIME: 10:11 Assessment/Plan VTE Prophylaxis VTE Prophylaxis Intervention: SCD's Lines/Catheters IV [facility]ter [facility]from [facility] Urinary Cath still in place: No Assessment/Plan Chief Complaint/Hosp Course ASSESSMENT AND PLAN: 61-year-old female sent in by outside doctor because of abnormal labs and also some failure to thrive. 1. Failure to thrive - seen by ST team - Na + improved. - continue IV fluids. - f/u TSH, A1c, and lipid panel. - Monitor her symptoms and vital signs very carefully. 2. Thoracic aneurysm - found on CT chest and also there is lung nodule ( suspicious for malignancy) - get pulm consult 3. Type 2 diabetes: - sliding scale insulin. 4. Prior strokes. Again, her head CT was negative. - monitor 5. History of asthma, chronic obstructive pulmonary disease. No present issues. Continue DuoNebs p.r.n. 6. Prior history of deep vein thrombosis and pulmonary embolism. Again, she has an inferior vena cava filter in place. Continue to monitor for now. 7. Gastrointestinal prophylaxis - proton pump inhibitor. 8. Deep vein thrombosis prophylaxis. Sequential compression devices. Problems: Subjective 24 Hr Interval Summary Free Text/Dictation Pt had CT chest yesterday, seen by surgery team as well. Exam/Review of Systems Vital Signs Vitals Vital Signs Date Time Temp Pulse Resp B/P Pulse Ox O2 Delivery O2 Flow Rate FiO2 10/04/16 07:34 97.9 56 16 155/95 98 10/02/16 20:00 Room Air Intake and Output 10/03/16 10/03/16 10/04/16 15:00 23:00 07:00 Intake Total 1720 ml 1300 ml Balance 1720 ml 1300 ml Exam GENERAL: The patient is lying in bed, family at bedside, Otherwise, no acute distress, weak, sister at bedside. HEENT: Pupils equal, round, react to light. Extraocular muscles intact. NECK: Supple. No thyromegaly. LUNGS: Clear to auscultation bilaterally. CARDIOVASCULAR: S1, S2 heard. No rubs or gallops. ABDOMEN: Soft, nontender, nondistended. Normal bowel sounds. No rebound or guarding. MUSCULOSKELETAL: She has some muscle wasting noted on the lower extremities, but otherwise no lower extremity edema bilaterally. NEUROLOGIC: No signs of any focal deficits. Results Result Diagram: 10/04/16 0610 10/04/16 0610 Results 24 hrs Laboratory Tests Test 10/03/16 12:00 10/03/16 12:35 10/03/16 17:46 10/03/16 20:42 Anion Gap 11 Basophils # 0.0 Basophils % 0.3 Blood Morphology Comment Blood Urea Nitrogen 28 H Calcium Level 7.8 L Carbon Dioxide Level 26 Chloride Level 99 Creatinine 0.30 L Eosinophils # 0.0 Eosinophils % 0.1 Glucose Level 79 Hematocrit 34.5 L Hemoglobin 11.1 L Lymphocytes # 0.8 Lymphocytes % 23.9 Mean Corpuscular Hemoglobin 29.7 Mean Corpuscular Hemoglobin Concent 32.0 Mean Corpuscular Volume 92.8 Mean Platelet Volume 7.4 Monocytes # 0.1 L Monocytes % 2.6 Neutrophils # 2.5 Neutrophils % 73.1 Nucleated Red Blood Cells # 0.0 Nucleated Red Blood Cells % 0.0 Platelet Count 343 Potassium Level 4.1 Red Blood Count 3.72 L Red Cell Distribution Width 17.8 H Sodium Level 132 L White Blood Count 3.5 L Bedside Glucose 74 132 150 Test 10/04/16 06:10 10/04/16 07:38 Anion Gap 8 Basophils # 0.0 Basophils % 0.2 Blood Morphology Comment Blood Urea Nitrogen 25 H Calcium Level 7.5 L Carbon Dioxide Level 30 Chloride Level 100 Creatinine 0.36 L Eosinophils # 0.0 Eosinophils % 0.1 Glucose Level 68 #L Hematocrit 28.9 L Hemoglobin 9.3 L Lymphocytes # 1.1 Lymphocytes % 22.2 Mean Corpuscular Hemoglobin 30.0 Mean Corpuscular Hemoglobin Concent 32.2 Mean Corpuscular Volume 93.2 Mean Platelet Volume 7.7 Monocytes # 0.2 L Monocytes % 4.0 Neutrophils # 3.7 Neutrophils % 73.5 Nucleated Red Blood Cells # 0.0 Nucleated Red Blood Cells % 0.0 Platelet Count 299 Potassium Level 3.7 Red Blood Count 3.10 L Red Cell Distribution Width 17.7 H Sodium Level 134 L White Blood Count 5.1 # Bedside Glucose 71 Medications Medications Current Medications Ondansetron HCl (Zofran Inj) 4 mg Q6H PRN IV NAUSEA AND/OR VOMITING; Start at 16:30 Acetaminophen (Tylenol Tab) 650 mg Q6H PRN PO PAIN LEVEL 1-3 OR FEVER; Start at 16:30 Acetaminophen/ Hydrocodone Bitart ([place] (5/325)) 1 tab Q6H PRN PO MODERATE PAIN LEVEL 4-6; Start 10/02/16 at 16:30 Morphine Sulfate (morphine) 2 mg Q4H PRN IV SEVERE PAIN LEVEL 7-10; Start 10/02 at 16:30 Docusate Sodium (Colace) 100 mg Q12H PRN PO CONSTIPATION; Start 10/02/16 at 16: 30 Magnesium Hydroxide (Milk Of Mag) 30 ml DAILY PRN PO CONSTIPATION; Start at 16:30 Sodium Biphosphate/ Sodium Phosphate (Fleet Enema) 133 ml DAILY PRN [place] CONSTIPATION; Start 10/02/16 at 16:30 Pantoprazole (Protonix Iv) 40 mg DAILY@06 IV Last administered on 10/04/16 06: 22; Admin Dose 40 MG; Start 10/03/16 at 06:00 Lorazepam 0.5 mg 0.5 mg Q6H PRN IV ANXIETY; Start 10/02/16 at 16:30 Sodium Chloride (NS) 1,000 ml @ 100 mls/hr Q10H IV Last administered on 02:22; Admin Dose 100 MLS/HR; Start 10/02/16 at 16:28 Hydralazine HCl (Apresoline) 10 mg Q6H PRN IV ELEVATED BLOOD PRESSURE; Start at 16:30 Nitroglycerin (Nitroglycerin (Sl Tab) 0.4 Mg) 1 tab Q5M PRN SL ANGINA; Start at 16:30 Aspirin (Halfprin) 81 mg DAILY PO Last administered on 10/04/16 09:17; Admin Dose 81 MG; Start 10/03/16 at 09:00 Atorvastatin Calcium (Lipitor) 40 mg HS PO Last administered on 10/03/16 20:54 ; Admin Dose 40 MG; Start 10/02/16 at 21:00 Carvedilol (Coreg) 6.25 mg BID PO Last administered on 10/04/16 09:18; Admin Dose 6.25 MG; Start 10/02/16 at 21:00 Montelukast Sodium (Singulair) 10 mg DAILY PO Last administered on 2/2/17at 09: 17; Admin Dose 10 MG; Start 10/03/16 at 09:00 Paroxetine HCl (Paxil) 20 mg DAILY PO Last administered on 10/04/16 09:17; Admin Dose 20 MG; Start 10/03/16 at 09:00 Diagnostic Test (Pha) (Accucheck) 1 ea 02 XX ; Start 10/04/16 at 02:00 Miscellaneous Information 1 ea NOTE XX ; Start 10/03/16 at 11:00 Glucose (Glutose) 15 gm Q15M PRN PO DECREASED GLUCOSE; Start 10/03/16 at 11:00 Glucose (Glutose) 22.5 gm Q15M PRN PO DECREASED GLUCOSE; Start 10/03/16 at 11:00 Dextrose (D50w Syringe) 25 ml Q15M PRN IV DECREASED GLUCOSE; Start 10/03/16 at 11:00 Dextrose (D50w Syringe) 50 ml Q15M PRN IV DECREASED GLUCOSE; Start 10/03/16 at 11:00 Glucagon (Glucagen) 1 mg Q15M PRN IM DECREASED GLUCOSE; Start 10/03/16 at 11:00 Glucose (Glutose) 15 gm Q15M PRN BUCCAL DECREASED GLUCOSE; Start 10/03/16 at 11: 00 Collagenase (Santyl) 1 applic DAILY TOP Last administered on 10/04/16 09:17; Admin Dose 1 APPLIC; Start 10/04/16 at 09:00 FORREST FELTON Oct 04, 2016 10:18
[2016-10-04] MEDS: SOD CHLORIDE 0.45% 1,000 ML IV SCH (10:30)
--- NOTE | 2016-10-04 12:27 | CONS ---
Date/Time of Note Date/Time of Note DATE: 10/04/16 TIME: 12:14 Assessment/Plan Assessment/Plan Additional Assessment/Plan Imaging studies were reviewed chest x-ray was reviewed from of last as well as CT scan of the chest with above-mentioned findings. Next Assessment and recommendations; 1. Patient admitted for dehydration. 2. Incidental discovery of right upper lobe spiculated lesion which is suspicious for primary bronchogenic carcinoma. 3. Large thoracic aortic aneurysm. 4. Extremely poor overall clinical status. Continue supportive care. I did have a very detailed discussion the patient's niece in the room apprised her of the findings. Niece does not want to pursue any diagnosis. Wants her on to be in comfort. She only wants simple medical management of her underlying problems. I did apprise her of the findings which are worrisome for a malignant process.I Totally concur with her decisions. Prognosis appears poor. The niece also wants her on to be on a DNR status. Consultation Date/Type/Reason Admit Date/Time Oct 02, 2016 at 14:27 Date of Consultation: Oct 04, 2016 Type of Consultation: Pulmonary Reason for Consultation Patient is a 61-year-old Afro [place] lady who was admitted on the of last month for dehydration. Chest x-ray was done which showed thoracic aortic aneurysm however there padmini lesion also identified in the right upper lobe which is suspicious for primary bronchogenic carcinoma ,pulmonary consultation has been obtained for further evaluation. History of presenting illness; patient admitted for dehydration she had routine labs done which showed evidence of electrolyte imbalance after being admitted patient was rehydrated. A chest x-ray was done which showed above-mentioned findings. Ultimately CT of the chest was done of last which is showing a spiculated lesion in the right upper lobe area as well as a very large left thoracic aortic aneurysm. Patient has very poor mental status history was obtained from medical records as well as from patient's niece was present in the room who takes care of her as the patient lives with her. Past medical history; 1. Diabetes 2. Hypertension 3. Asthma 4. COPD 5. History of DVT/PE 6. History of inferior vena cava filter placement in 2013 7. Multiple CVAs. 8. Patient is essentially bedbound. Medications; were reviewed. Allergies; none Social history; patient has a long-standing history of smoking. Family history; it is . She has 5 children. She lives with her niece. 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 Review of systems; currently unable to be obtained. General examination; middle aged woman appears much older than stated age. Laying curled up in bed. Currently in no distress. Not much communicative. Social History Smoking Status: Never smoker Exam/Review of Systems Vital Signs Vitals Vital Signs Date Time Temp Pulse Resp B/P Pulse Ox O2 Delivery O2 Flow Rate FiO2 10/04/16 07:34 97.9 56 16 155/95 98 10/02/16 20:00 Room Air Intake and Output 10/03/16 10/03/16 10/04/16 15:00 23:00 07:00 Intake Total 1720 ml 1300 ml Balance 1720 ml 1300 ml Exam H EENT examination; supple neck, no JVD. No neck masses. Midline trachea. No thyromegaly. Pupils are small bilaterally. Next Chest examination; diminished breath sounds throughout. S1-S2 audible no murmurs. Regular rate and rhythm. Next Abdomen examination; soft, scaphoid. No organomegaly. Bowel sounds audible. Back examination; sacral decubitus ulcers are present. Extremity examination; no peripheral edema. No clubbing. There is severe muscular wasting involving the entire body. [employer] examination; patient is awake but does not respond to any commands. Results Result Diagram: 10/04/16 0610 10/04/16 0610 Results 24 hrs Laboratory Tests Test 10/03/16 12:35 10/03/16 17:46 10/03/16 20:42 10/04/16 06:10 Bedside Glucose 74 132 150 Anion Gap 8 Basophils # 0.0 Basophils % 0.2 Blood Morphology Comment Blood Urea Nitrogen 25 H Calcium Level 7.5 L Carbon Dioxide Level 30 Chloride Level 100 Creatinine 0.36 L Eosinophils # 0.0 Eosinophils % 0.1 Glucose Level 68 #L Hematocrit 28.9 L Hemoglobin 9.3 L Lymphocytes # 1.1 Lymphocytes % 22.2 Mean Corpuscular Hemoglobin 30.0 Mean Corpuscular Hemoglobin Concent 32.2 Mean Corpuscular Volume 93.2 Mean Platelet Volume 7.7 Monocytes # 0.2 L Monocytes % 4.0 Neutrophils # 3.7 Neutrophils % 73.5 Nucleated Red Blood Cells # 0.0 Nucleated Red Blood Cells % 0.0 Platelet Count 299 Potassium Level 3.7 Red Blood Count 3.10 L Red Cell Distribution Width 17.7 H Sodium Level 134 L White Blood Count 5.1 # Test 10/04/16 07:38 10/04/16 11:41 Bedside Glucose 71 96 Medications Medications Current Medications Ondansetron HCl (Zofran Inj) 4 mg Q6H PRN IV NAUSEA AND/OR VOMITING; Start at 16:30 Acetaminophen (Tylenol Tab) 650 mg Q6H PRN PO PAIN LEVEL 1-3 OR FEVER; Start at 16:30 Acetaminophen/ Hydrocodone Bitart ([place] (5/325)) 1 tab Q6H PRN PO MODERATE PAIN LEVEL 4-6; Start 10/02/16 at 16:30 Morphine Sulfate (morphine) 2 mg Q4H PRN IV SEVERE PAIN LEVEL 7-10; Start 10/02 at 16:30 Docusate Sodium (Colace) 100 mg Q12H PRN PO CONSTIPATION; Start 10/02/16 at 16: 30 Magnesium Hydroxide (Milk Of Mag) 30 ml DAILY PRN PO CONSTIPATION; Start at 16:30 Sodium Biphosphate/ Sodium Phosphate (Fleet Enema) 133 ml DAILY PRN [place] CONSTIPATION; Start 10/02/16 at 16:30 Pantoprazole (Protonix Iv) 40 mg DAILY@06 IV Last administered on 10/04/16 06: 22; Admin Dose 40 MG; Start 10/03/16 at 06:00 Lorazepam (Ativan) 0.5 mg Q6H PRN IV ANXIETY; Start 10/02/16 at 16:30 Hydralazine HCl (Apresoline) 10 mg Q6H PRN IV ELEVATED BLOOD PRESSURE; Start at 16:30 Nitroglycerin (Nitroglycerin (Sl Tab) 0.4 Mg) 1 tab Q5M PRN SL ANGINA; Start at 16:30 Aspirin (Halfprin) 81 mg DAILY PO Last administered on 10/04/16 09:17; Admin Dose 81 MG; Start 10/03/16 at 09:00 Atorvastatin Calcium (Lipitor) 40 mg HS PO Last administered on 10/03/16 20:54 ; Admin Dose 40 MG; Start 10/02/16 at 21:00 Carvedilol (Coreg) 6.25 mg BID PO Last administered on 10/04/16 09:18; Admin Dose 6.25 MG; Start 10/02/16 at 21:00 Montelukast Sodium (Singulair) 10 mg DAILY PO Last administered on 10/04/16 09: 17; Admin Dose 10 MG; Start 10/03/16 at 09:00 Paroxetine HCl (Paxil) 20 mg DAILY PO Last administered on 10/04/16 09:17; Admin Dose 20 MG; Start 10/03/16 at 09:00 Diagnostic Test (Pha) (Accucheck) 1 ea 02 XX ; Start 10/04/16 at 02:00 Miscellaneous Information 1 ea NOTE XX ; Start 10/03/16 at 11:00 Glucose (Glutose) 15 gm Q15M PRN PO DECREASED GLUCOSE; Start 10/03/16 at 11:00 Glucose (Glutose) 22.5 gm Q15M PRN PO DECREASED GLUCOSE; Start 10/03/16 at 11:00 Dextrose (D50w Syringe) 25 ml Q15M PRN IV DECREASED GLUCOSE; Start 10/03/16 at 11:00 Dextrose (D50w Syringe) 50 ml Q15M PRN IV DECREASED GLUCOSE; Start 10/03/16 at 11:00 Glucagon (Glucagen) 1 mg Q15M PRN IM DECREASED GLUCOSE; Start 10/03/16 at 11:00 Glucose (Glutose) 15 gm Q15M PRN BUCCAL DECREASED GLUCOSE; Start 10/03/16 at 11: 00 Collagenase 1 applic 1 applic DAILY TOP Last administered on 10/04/16 09:17; Admin Dose 1 APPLIC; Start 10/04/16 at 09:00 Sodium Chloride (1/2 NS) 1,000 ml @ 75 mls/hr [id number] IV Last administered on 10/04/16 10:30; Admin Dose 75 MLS/HR; Start 10/04/16 at 10:30 AYAD FARMER Oct 04, 2016 12:24
[2016-10-04 19:17] VITALS: BP 144/88; RESP 16
--- NOTE | 2016-10-04 20:28 | PN ---
Date/Time of Note Date/Time of Note DATE: 10/04/16 TIME: 20:24 Assessment/Plan Lines/Catheters IV Catheter Type (from [facility]): Saline Lock Zavala in Place (from [facility]): No Assessment/Plan Chief Complaint/Hosp Course 1. Multiple decubitus ulcers with necrotic tissues. -offload -nutrition optimization -vit c -local care debridement prn 2. Functional quadriplegia with contracted state with history of previous strokes -Offload -Nutrition optimization -Medical optimization 3. Failure to thrive and persistent chronic decubitus ulcerations. Family was encouraged to place patient in fdc however they think she gets better care at home -Nutrition optimization -Offloading -Medical optimization 4. Hypoalbuminemia and hypocalcemia, multifactorial -Nutritional optimization 5. Hyponatremia with possible dehydration -Judicious fluid management and correct slowly 6. Anemia without evidence of acute blood loss -Monitor 7. Type 2 diabetes -Nutrition and medication optimization 8. 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 Incidental discovery of right upper lobe spiculated lesion which is suspicious for primary bronchogenic carcinoma -No tx per family 10. Large thoracic aortic aneurysm -medical optimization Thank you, Problems: Subjective [address] chest noted. No fevers or chills. No nausea vomiting. No bloating. Positive bowel function. No cough. No seizure. No blood per mouth or rectum. No pyuria. Multiple wounds. Exam/Review of Systems Vital Signs Vitals Vital Signs Date Time Temp Pulse Resp B/P Pulse Ox O2 Delivery O2 Flow Rate FiO2 10/04/16 19:17 97.4 62 16 144/88 98 10/02/16 20:00 Room Air Intake and Output 10/03/16 10/03/16 10/04/16 15:00 23:00 07:00 Intake Total 1720 ml 1300 ml Balance 1720 ml 1300 ml Exam Free Text/Dictation Constitutional: other (awake but unable to communicate or mobilize), No distress, No oriented Psych: anxiety, confusion Head: normocephalic, No atraumatic Eyes: PERRL, nl conjunctiva, No icteric ENMT: nl external ears & nose, No mucosa pink and moist Neck: non-tender (Baseline rigidity), No jvd, No supple Respiratory: normal air movement, No congested cough, No labored breathing Cardiovascular: regular rate and rhythm, No edema Gastrointestinal: non-tender, soft, No distended Musculoskeletal: No joint tenderness, No nl extremities to inspection, No nl gait and stance Extremities: No calf tenderness, No edema, No normal pulses Neurological: No nl mental status, No nl speech, No nl strength Skin: rash or lesions (multiple decubitus ulcerations as per RN note and pictures), No diaphoresis, No nl turgor Results Result Diagram: 10/04/1660910/04/16609 Results Last [address] chest: 1. Large thoracic aortic aneurysm measuring up to 67 mm. 2. 17 mm spiculated nodule in right apex represents neoplasm until proven otherwise. 3. Bilateral small pleural effusions with atelectasis, right greater than left. 4. Ascites. ABNORMAL RESULTS: 17 MM NEOPLASM IN RIGHT APEX; AND LARGE THORACIC AORTIC ANEURYSM. KENROY MURILLO MD Oct 04, 2016 20:28
[2016-10-04] MEDS: ATORVASTATIN 40 MG TAB PO SCH (21:48)
[2016-10-05] MEDS: SOD CHLORIDE 0.45% 1,000 ML IV SCH ×2 (00:58→15:47)
[2016-10-05] MEDS: ACCUCHECK XX SCH (02:00)
[2016-10-05] MEDS: PANTOPRAZOLE (EC) 40 MG TAB PO SCH (05:34)
[2016-10-05 07:23] VITALS: BP 171/106; RESP 16
[2016-10-05 07:49] LABS: BASOPHILS % 0.3 % (0.0-2.0); EOSINOPHILS % 0.2 % (0.0-7.0); HEMATOCRIT 34.8 % (37.0-47.0); HEMOGLOBIN 11.2 g/dl (12.0-16.0); LYMPHOCYTES # 0.9 10^3/ul (0.8-2.9); LYMPHOCYTES % 25.8 % (15.0-51.0); MEAN CORPUSCULAR HEMOGLOBIN 29.4 pg (29.0-33.0); MEAN CORPUSCULAR HGB CONC 32.3 g/dl (32.0-37.0); MEAN CORPUSCULAR VOLUME 91.2 fl (82.0-101.0); MEAN PLATELET VOLUME 7.5 fl (7.4-10.4); MONOCYTE # 0.1 10^3/ul (0.3-0.9); MONOCYTES % 4.1 % (0.0-11.0); NEUTROPHIL # 2.3 10^3/ul (1.6-7.5); NEUTROPHILS % 69.6 % (39.0-77.0); PLATELET COUNT 319 10^3/UL (140-440); RED BLOOD COUNT 3.81 10^6/ul (4.20-5.40); RED CELL DISTRIBUTION WIDTH 17.7 % (11.5-14.5); UNCORRECTED WBC 3.4 10^3/ul (4.8-10.8); WHITE BLOOD COUNT 3.4 10^3/ul (4.8-10.8)
[2016-10-05 08:02] LABS: POTASSIUM 3.5 mmol/L (3.5-5.1)
[2016-10-05 08:05] LABS: CALCIUM 7.7 mg/dl (8.4-10.2); CREATININE 0.37 mg/dl (0.44-1.00)
[2016-10-05] MEDS: INSULIN ASPART [NOVOLOG] 3 ML PEN SC SCH ×4 (08:06→21:00)
[2016-10-05 08:26] LABS: CONDITION 1; LH ANALYZER COMMENTS 1
[2016-10-05] MEDS ORDERED: SILVER NITRATE SWAB TOP ONE (09:00)
[2016-10-05] MEDS ORDERED: LIDOCAINE 1%/EPI 30 ML INJ SC ONE (09:00)
[2016-10-05] MEDS: PAROXETINE 20 MG TAB PO SCH (09:46)
[2016-10-05] MEDS: ASPIRIN (EC) 81 MG TAB PO SCH (09:46)
[2016-10-05] MEDS: MONTELUKAST 10 MG TAB PO SCH (09:46)
--- NOTE | 2016-10-05 10:56 | PN ---
Date/Time of Note Date/Time of Note DATE: 10/05/16 TIME: 10:54 Assessment/Plan VTE Prophylaxis VTE Prophylaxis Intervention: SCD's Lines/Catheters IV Catheter Type (from [facility]): Saline Lock Urinary Cath still in place: No Assessment/Plan Chief Complaint/Hosp Course ASSESSMENT AND PLAN: 61-year-old female sent in by outside doctor because of abnormal labs and also some failure to thrive. 1. Failure to thrive - seen by ST team - Na + improved. - continue IV fluids. - Monitor her symptoms and vital signs very carefully. 2. Thoracic aneurysm - found on CT chest and also there is lung nodule ( suspicious for malignancy) - f/u pulm consult rec's, family does not want to puruse further care of this 3. Type 2 diabetes: - sliding scale insulin. 4. Prior strokes. Again, her head CT was negative. - monitor 5. History of asthma, chronic obstructive pulmonary disease. No present issues. Continue DuoNebs p.r.n. 6. Prior history of deep vein thrombosis and pulmonary embolism. Again, she has an inferior vena cava filter in place. Continue to monitor for now. 7. Gastrointestinal prophylaxis - proton pump inhibitor. 8. Deep vein thrombosis prophylaxis. Sequential compression devices. 9. lung mass - highly suspicious for cancer - initially family declined further w/u, however - family now wants to get biopsy will order for U/S guided biopsy today. Problems: Subjective 24 Hr Interval Summary Free Text/Dictation No acute events overnight, seen by pulm team. Exam/Review of Systems Vital Signs Vitals Vital Signs Date Time Temp Pulse Resp B/P Pulse Ox O2 Delivery O2 Flow Rate FiO2 10/05/16 07:23 97.9 55 16 171/106 99 10/02/16 20:00 Room Air Intake and Output 10/04/16 10/04/16 10/05/16 15:00 23:00 07:00 Intake Total 500 ml 1440 ml 820 ml Balance 500 ml 1440 ml 820 ml Exam GENERAL: The patient is lying in bed, family at bedside, Otherwise, no acute distress, weak, sister at bedside. HEENT: Pupils equal, round, react to light. Extraocular muscles intact. NECK: Supple. No thyromegaly. LUNGS: Clear to auscultation bilaterally. CARDIOVASCULAR: S1, S2 heard. No rubs or gallops. ABDOMEN: Soft, nontender, nondistended. Normal bowel sounds. No rebound or guarding. MUSCULOSKELETAL: She has some muscle wasting noted on the lower extremities, but otherwise no lower extremity edema bilaterally. NEUROLOGIC: No signs of any focal deficits. Results Result Diagram: 10/05/16 0700 10/05/16 0700 Results 24 hrs Laboratory Tests Test 10/04/16 11:41 10/04/16 16:58 10/04/16 21:52 10/05/16 07:00 Bedside Glucose 96 94 111 Anion Gap 8 Basophils # 0.0 Basophils % 0.3 Blood Morphology Comment Blood Urea Nitrogen 17 Calcium Level 7.7 L Carbon Dioxide Level 34 H Chloride Level 94 L Creatinine 0.37 L Eosinophils # 0.0 Eosinophils % 0.2 Glucose Level 71 Hematocrit 34.8 #L Hemoglobin 11.2 #L Lymphocytes # 0.9 Lymphocytes % 25.8 Mean Corpuscular Hemoglobin 29.4 Mean Corpuscular Hemoglobin Concent 32.3 Mean Corpuscular Volume 91.2 Mean Platelet Volume 7.5 Monocytes # 0.1 L Monocytes % 4.1 Neutrophils # 2.3 Neutrophils % 69.6 Nucleated Red Blood Cells # 0.0 Nucleated Red Blood Cells % 0.0 Platelet Count 319 Potassium Level 3.5 Red Blood Count 3.81 #L Red Cell Distribution Width 17.7 H Sodium Level 132 L White Blood Count 3.4 #L Test 10/05/16 08:02 10/05/16 09:42 10/05/16 10:22 Bedside Glucose 64 L 86 89 Medications Medications Current Medications Ondansetron HCl (Zofran Inj) 4 mg Q6H PRN IV NAUSEA AND/OR VOMITING; Start at 16:30 Acetaminophen (Tylenol Tab) 650 mg Q6H PRN PO PAIN LEVEL 1-3 OR FEVER; Start at 16:30 Acetaminophen/ Hydrocodone Bitart ([place] (5/325)) 1 tab Q6H PRN PO MODERATE PAIN LEVEL 4-6; Start 10/02/16 at 16:30 Morphine Sulfate (morphine) 2 mg Q4H PRN IV SEVERE PAIN LEVEL 7-10; Start 10/02 at 16:30 Docusate Sodium (Colace) 100 mg Q12H PRN PO CONSTIPATION; Start 10/02/16 at 16: 30 Magnesium Hydroxide (Milk Of Mag) 30 ml DAILY PRN PO CONSTIPATION; Start at 16:30 Sodium Biphosphate/ Sodium Phosphate (Fleet Enema) 133 ml DAILY PRN [place] CONSTIPATION; Start 10/02/16 at 16:30 Lorazepam (Ativan) 0.5 mg Q6H PRN IV ANXIETY; Start 10/02/16 at 16:30 Hydralazine HCl (Apresoline) 10 mg Q6H PRN IV ELEVATED BLOOD PRESSURE; Start at 16:30 Nitroglycerin (Nitroglycerin (Sl Tab) 0.4 Mg) 1 tab Q5M PRN SL ANGINA; Start at 16:30 Aspirin (Halfprin) 81 mg DAILY PO Last administered on 10/05/16 09:46; Admin Dose 81 MG; Start 10/03/16 at 09:00 Atorvastatin Calcium (Lipitor) 40 mg HS PO Last administered on 10/04/16 21:48 ; Admin Dose 40 MG; Start 10/02/16 at 21:00 Carvedilol (Coreg) 6.25 mg BID PO Last administered on 10/05/16 09:47; Admin Dose 6.25 MG; Start 10/02/16 at 21:00 Montelukast Sodium (Singulair) 10 mg DAILY PO Last administered on 10/05/16 09: 46; Admin Dose 10 MG; Start 10/03/16 at 09:00 Paroxetine HCl (Paxil) 20 mg DAILY PO Last administered on 10/05/16 09:46; Admin Dose 20 MG; Start 10/03/16 at 09:00 Diagnostic Test (Pha) (Accucheck) 1 ea 02 XX ; Start 10/04/16 at 02:00 Miscellaneous Information 1 ea NOTE XX ; Start 10/03/16 at 11:00 Glucose (Glutose) 15 gm Q15M PRN PO DECREASED GLUCOSE; Start 10/03/16 at 11:00 Glucose (Glutose) 22.5 gm Q15M PRN PO DECREASED GLUCOSE; Start 10/03/16 at 11:00 Dextrose (D50w Syringe) 25 ml Q15M PRN IV DECREASED GLUCOSE; Start 10/03/16 at 11:00 Dextrose (D50w Syringe) 50 ml Q15M PRN IV DECREASED GLUCOSE; Start 10/03/16 at 11:00 Glucagon (Glucagen) 1 mg Q15M PRN IM DECREASED GLUCOSE; Start 10/03/16 at 11:00 Glucose (Glutose) 15 gm Q15M PRN BUCCAL DECREASED GLUCOSE; Start 10/03/16 at 11: 00 Collagenase 1 applic 1 applic DAILY TOP Last administered on 10/04/16 09:17; Admin Dose 1 APPLIC; Start 10/04/16 at 09:00 Sodium Chloride (1/2 NS) 1,000 ml @ 75 mls/hr [id number] IV Last administered on 10/05/16 00:58; Admin Dose 75 MLS/HR; Start 10/04/16 at 10:30 Pantoprazole (Protonix Tab) 40 mg DAILY@06 PO Last administered on 10/05/16 05: 34; Admin Dose 40 MG; Start 10/05/16 at 06:00 FORREST FELTON Oct 05, 2016 10:56
[2016-10-05] MEDS: COLLAGENASE 30 GM TUBE TOP SCH (15:48)
[2016-10-05 20:17] VITALS: BP 151/93; RESP 18
[2016-10-05] MEDS: ATORVASTATIN 40 MG TAB PO SCH (20:58)
[2016-10-06] MEDS: ACCUCHECK XX SCH (01:49)
[2016-10-06] MEDS: SOD CHLORIDE 0.45% 1,000 ML IV SCH ×3 (02:30→17:39)
[2016-10-06] MEDS: PANTOPRAZOLE (EC) 40 MG TAB PO SCH (05:58)
[2016-10-06] MEDS: INSULIN ASPART [NOVOLOG] 3 ML PEN SC SCH ×4 (08:15→21:00)
[2016-10-06] MEDS: PAROXETINE 20 MG TAB PO SCH (08:47)
[2016-10-06] MEDS: ASPIRIN (EC) 81 MG TAB PO SCH (08:47)
[2016-10-06] MEDS: MONTELUKAST 10 MG TAB PO SCH (08:47)
[2016-10-06] MEDS: hydrALAzine 20 MG INJ IV PRN (08:48)
[2016-10-06 08:54] LABS: POTASSIUM 4.5 mmol/L (3.5-5.1)
[2016-10-06 08:57] LABS: CALCIUM 8.2 mg/dl (8.4-10.2); CREATININE 0.3 mg/dl (0.44-1.00)
--- NOTE | 2016-10-06 09:11 | PN ---
Date/Time of Note Date/Time of Note DATE: 10/06/16 TIME: 09:08 Assessment/Plan VTE Prophylaxis VTE Prophylaxis Intervention: SCD's Lines/Catheters IV Catheter Type (from [facility]): Saline Lock Urinary Cath still in place: No Assessment/Plan Chief Complaint/Hosp Course ASSESSMENT AND PLAN: 61-year-old female sent in by outside doctor because of abnormal labs and also some failure to thrive. 1. Failure to thrive - seen by ST team - Na + improved. - continue IV fluids. - Monitor her symptoms and vital signs very carefully. 2. Thoracic aneurysm - found on CT chest and also there is lung nodule ( suspicious for malignancy) - f/u pulm consult rec's, family does not want to pursue further care regarding the aneurysm 3. Type 2 diabetes: - sliding scale insulin. 4. Prior strokes. Again, her head CT was negative. - monitor 5. History of asthma, chronic obstructive pulmonary disease. No present issues. Continue DuoNebs p.r.n. 6. Prior history of deep vein thrombosis and pulmonary embolism. Again, she has an inferior vena cava filter in place. Continue to monitor for now. 7. Gastrointestinal prophylaxis - proton pump inhibitor. 8. Deep vein thrombosis prophylaxis. Sequential compression devices. 9. lung mass - highly suspicious for cancer - initially family declined further w/u, however - family now wants to get biopsy - but again was not able to be performed - monitor 10. stage IV ulcers - for possible debridement by surgery team today. Problems: Subjective 24 Hr Interval Summary Free Text/Dictation Pt not able to get biopsy done yesterday (too small per radiology). Exam/Review of Systems Vital Signs Vitals Vital Signs Date Time Temp Pulse Resp B/P Pulse Ox O2 Delivery O2 Flow Rate FiO2 10/05/16 20:17 98.2 73 18 151/93 98 10/02/16 20:00 Room Air Intake and Output 10/05/16 10/05/16 10/06/16 15:00 23:00 07:00 Intake Total 1300 ml 1615 ml Balance 1300 ml 1615 ml Exam GENERAL: The patient is lying in bed, lethargic, no acute distress HEENT: Pupils equal, round, react to light. Extraocular muscles intact. NECK: Supple. No thyromegaly. LUNGS: Clear to auscultation bilaterally. CARDIOVASCULAR: S1, S2 heard. No rubs or gallops. ABDOMEN: Soft, nontender, nondistended. Normal bowel sounds. No rebound or guarding. MUSCULOSKELETAL: She has some muscle wasting noted on the lower extremities, but otherwise no lower extremity edema bilaterally. NEUROLOGIC: No signs of any focal deficits. Results Result Diagram: 10/05/16 0700 10/06/16 0748 Results 24 hrs Laboratory Tests Test 10/05/16 09:42 10/05/16 10:22 10/05/16 12:02 10/05/16 17:38 Bedside Glucose 86 89 85 118 Test 10/05/16 21:08 10/06/16 07:48 10/06/16 08:15 Bedside Glucose 134 65 L Anion Gap 10 Blood Urea Nitrogen 16 Calcium Level 8.2 L Carbon Dioxide Level 38 H Chloride Level 91 L Creatinine 0.30 L Glucose Level 80 Potassium Level 4.5 Sodium Level 134 L Medications Medications Current Medications Ondansetron HCl (Zofran Inj) 4 mg Q6H PRN IV NAUSEA AND/OR VOMITING; Start at 16:30 Acetaminophen (Tylenol Tab) 650 mg Q6H PRN PO PAIN LEVEL 1-3 OR FEVER; Start at 16:30 Acetaminophen/ Hydrocodone Bitart ([place] (5/325)) 1 tab Q6H PRN PO MODERATE PAIN LEVEL 4-6; Start 10/02/16 at 16:30 Morphine Sulfate (morphine) 2 mg Q4H PRN IV SEVERE PAIN LEVEL 7-10; Start 10/02 at 16:30 Docusate Sodium (Colace) 100 mg Q12H PRN PO CONSTIPATION; Start 10/02/16 at 16: 30 Magnesium Hydroxide (Milk Of Mag) 30 ml DAILY PRN PO CONSTIPATION; Start at 16:30 Sodium Biphosphate/ Sodium Phosphate (Fleet Enema) 133 ml DAILY PRN [place] CONSTIPATION; Start 10/02/16 at 16:30 Lorazepam (Ativan) 0.5 mg Q6H PRN IV ANXIETY; Start 10/02/16 at 16:30 Hydralazine HCl (Apresoline) 10 mg Q6H PRN IV ELEVATED BLOOD PRESSURE Last administered on 10/06/16t 08:48; Admin Dose 10 MG; Start 10/02/16 at 16:30 Nitroglycerin (Nitroglycerin (Sl Tab) 0.4 Mg) 1 tab Q5M PRN SL ANGINA; Start at 16:30 Aspirin (Halfprin) 81 mg DAILY PO Last administered on 10/06/16 08:47; Admin Dose 81 MG; Start 10/03/16 at 09:00 Atorvastatin Calcium (Lipitor) 40 mg HS PO Last administered on 10/05/16 20:58 ; Admin Dose 40 MG; Start 10/02/16 at 21:00 Carvedilol (Coreg) 6.25 mg BID PO Last administered on 10/06/16 08:48; Admin Dose 6.25 MG; Start 10/02/16 at 21:00 Montelukast Sodium (Singulair) 10 mg DAILY PO Last administered on 10/06/16 08: 47; Admin Dose 10 MG; Start 10/03/16 at 09:00 Paroxetine HCl (Paxil) 20 mg DAILY PO Last administered on 10/06/16 08:47; Admin Dose 20 MG; Start 10/03/16 at 09:00 Diagnostic Test (Pha) (Accucheck) 1 ea 02 XX ; Start 10/04/16 at 02:00 Miscellaneous Information 1 ea NOTE XX ; Start 10/03/16 at 11:00 Glucose (Glutose) 15 gm Q15M PRN PO DECREASED GLUCOSE; Start 10/03/16 at 11:00 Glucose (Glutose) 22.5 gm Q15M PRN PO DECREASED GLUCOSE; Start 10/03/16 at 11:00 Dextrose (D50w Syringe) 25 ml Q15M PRN IV DECREASED GLUCOSE; Start 10/03/16 at 11:00 Dextrose (D50w Syringe) 50 ml Q15M PRN IV DECREASED GLUCOSE; Start 10/03/16 at 11:00 Glucagon (Glucagen) 1 mg Q15M PRN IM DECREASED GLUCOSE; Start 10/03/16 at 11:00 Glucose (Glutose) 15 gm Q15M PRN BUCCAL DECREASED GLUCOSE; Start 10/03/16 at 11: 00 Collagenase 1 applic 1 applic DAILY TOP Last administered on 10/05/16 15:48; Admin Dose 1 APPLIC; Start 10/04/16 at 09:00 Sodium Chloride (1/2 NS) 1,000 ml @ 75 mls/hr [id number] IV Last administered on 10/06/16 04:29; Admin Dose 75 MLS/HR; Start 10/04/16 at 10:30 Pantoprazole (Protonix Tab) 40 mg DAILY@06 PO Last administered on 10/06/16t 05: 58; Admin Dose 40 MG; Start 10/05/16 at 06:00 FORREST FELTON Oct 06, 2016 09:11
[2016-10-06 09:25] VITALS: BP 114/79; PULSE 72; RESP 18
[2016-10-06 10:36] LABS: HEMATOCRIT 36.7 % (37.0-47.0); HEMOGLOBIN 11.6 g/dl (12.0-16.0); LYMPHOCYTES % 31.1 % (15.0-51.0); MEAN CORPUSCULAR HEMOGLOBIN 29.1 pg (29.0-33.0); MEAN CORPUSCULAR HGB CONC 31.6 g/dl (32.0-37.0); MONOCYTES % 5.2 % (0.0-11.0); NEUTROPHILS % 63.4 % (39.0-77.0); PLATELET COUNT 303 10^3/UL (140-440); RED BLOOD COUNT 3.99 10^6/ul (4.20-5.40); RED CELL DISTRIBUTION WIDTH 16.6 % (11.5-14.5); WHITE BLOOD COUNT 3.1 10^3/ul (4.8-10.8)
[2016-10-06 10:37] LABS: MONOCYTE # 0.2 10^3/ul (0.3-0.9)
--- NOTE | 2016-10-06 17:37 | OPR ---
Date/Time of Note Date/Time of Note DATE: 10/06/16 TIME: 17:34 Operative Report Procedure Date: Oct 04, 2016 Preoperative Diagnosis Right elbow 3 x 1 stage IV decubitus ulcer Postoperative Diagnosis Same Operation Performed Excisional debridement of skin and subcutaneous fascia and bone right elbow, 3 x 1 cm Surgeon: KENROY MURILLO MD Estimated Blood Loss: none Specimens None Tubes/Drains Dressing Complications: None Pt Condition Post Procedure: stable Disposition: other (room) Indications Per consult Usual customary risks discussed with family Procedure Description Right elbow was prepped and draped sterilely. Timeout was performed. Using curet the necrotic tissue of skin, subcutaneous, fascia, bone were debrided to healthy edges. Dressing was applied. Patient tolerated procedure well. KENROY MURILLO MD Oct 06, 2016 17:36
--- NOTE | 2016-10-06 17:38 | OPR ---
Date/Time of Note Date/Time of Note DATE: 10/06/16 TIME: 17:37 Operative Report Procedure Date: Oct 05, 2016 Preoperative Diagnosis Right trochanteric stage IV decrease ulcer, 5 x 2 cm Postoperative Diagnosis Same Operation Performed Excisional debridement of skin, subcutaneous, fascia of right trochanter, 5 x 2 cm Surgeon: KENROY MURILLO MD Estimated Blood Loss: minimal Specimens None Tubes/Drains Dressing Complications: None Pt Condition Post Procedure: stable Disposition: other (room) Indications Per notes Usual customary risks Procedure Description Right trochanter was prepped and draped sterilely. Timeout was performed. Using curet the necrotic tissue of skin, subcutaneous, & fascia were debrided to healthy edges. Dressing was applied. Patient tolerated procedure well. KENROY MURILLO MD Oct 06, 2016 17:38
[2016-10-06] MEDS: COLLAGENASE 30 GM TUBE TOP SCH (17:39)
--- NOTE | 2016-10-06 17:42 | PN ---
Date/Time of Note Date/Time of Note DATE: 10/05/16 TIME: 17:39 Assessment/Plan Lines/Catheters IV Catheter Type (from [facility]): Saline Lock Zavala in Place (from [facility]): No Assessment/Plan Chief Complaint/Hosp Course 1. Multiple decubitus ulcers with necrotic tissues s/p sequential debridements -offload -nutrition optimization -vit c -local care debridement prn 2. Functional quadriplegia with contracted state with history of previous strokes -Offload -Nutrition optimization -Medical optimization 3. Failure to thrive and persistent chronic decubitus ulcerations. Family was encouraged to place patient in retirement however they think she gets better care at home -Nutrition optimization -Offloading -Medical optimization 4. Hypoalbuminemia and hypocalcemia, multifactorial -Nutritional optimization 5. Hyponatremia with possible dehydration -Judicious fluid management and correct slowly 6. Anemia without evidence of acute blood loss -Monitor 7. Type 2 diabetes -Nutrition and medication optimization 8. 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 Incidental discovery of right upper lobe spiculated lesion which is suspicious for primary bronchogenic carcinoma -No tx per family 10. Large thoracic aortic aneurysm -medical optimization Thank you, Late entry 2/3 Problems: Subjective [address] chest noted. No fevers or chills. No nausea vomiting. No bloating. Positive bowel function. No cough. No seizure. No blood per mouth or rectum. No pyuria. Multiple wounds s/p sequential debridements Exam/Review of Systems Vital Signs Vitals Vital Signs Date Time Temp Pulse Resp B/P Pulse Ox O2 Delivery O2 Flow Rate FiO2 10/06/16 09:25 72 18 114/79 Room Air 10/05/16 20:17 98.2 98 Intake and Output 10/05/16 10/05/16 10/06/16 15:00 23:00 07:00 Intake Total 1300 ml 1615 ml Balance 1300 ml 1615 ml Exam Free Text/Dictation Constitutional: other (awake but unable to communicate or mobilize), No distress, No oriented Psych: anxiety, confusion Head: normocephalic, No atraumatic Eyes: PERRL, nl conjunctiva, No icteric ENMT: nl external ears & nose, No mucosa pink and moist Neck: non-tender (Baseline rigidity), No jvd, No supple Respiratory: normal air movement, No congested cough, No labored breathing Cardiovascular: regular rate and rhythm, No edema Gastrointestinal: non-tender, soft, No distended Musculoskeletal: No joint tenderness, No nl extremities to inspection, No nl gait and stance Extremities: No calf tenderness, No edema, No normal pulses Neurological: No nl mental status, No nl speech, No nl strength Skin: rash or lesions (multiple decubitus ulcerations as per RN note and pictures), No diaphoresis, No nl turgor Results Result Diagram: 10/06/16 0748 10/06/16 0748 KENROY MURILLO MD Oct 06, 2016 17:42
--- NOTE | 2016-10-06 17:44 | PN ---
Date/Time of Note Date/Time of Note DATE: 10/06/16 TIME: 17:42 Assessment/Plan Lines/Catheters IV Catheter Type (from [facility]): Saline Lock Zavala in Place (from [facility]): No Assessment/Plan Chief Complaint/Hosp Course 1. Multiple decubitus ulcers with necrotic tissues s/p sequential debridements -offload -nutrition optimization -vit c -local care debridement prn 2. Functional quadriplegia with contracted state with history of previous strokes -Offload -Nutrition optimization -Medical optimization 3. Failure to thrive and persistent chronic decubitus ulcerations. Family was encouraged to place [facility] however they think she gets better care at home -Nutrition optimization -Offloading -Medical optimization 4. Hypoalbuminemia and hypocalcemia, multifactorial -Nutritional optimization 5. Hyponatremia with possible dehydration -Judicious fluid management and correct slowly 6. Anemia without evidence of acute blood loss -Monitor 7. Type 2 diabetes -Nutrition and medication optimization 8. 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 Incidental discovery of right upper lobe spiculated lesion which is suspicious for primary bronchogenic carcinoma -No tx per family 10. Large thoracic aortic aneurysm -medical optimization Thank you, Problems: Subjective [address] chest noted. Discussed with patient's family and the elected and agreed to proceed with lung biopsy since the results will not make any changes in the decision-making and would actually put her in further risks and discomfort. No fevers or chills. No nausea vomiting. No bloating. Positive bowel function. No cough. No seizure. No blood per mouth or rectum. No pyuria. Multiple wounds s/p sequential debridements Exam/Review of Systems Vital Signs Vitals Vital Signs Date Time Temp Pulse Resp B/P Pulse Ox O2 Delivery O2 Flow Rate FiO2 10/06/16 09:25 72 18 114/79 Room Air 10/05/16 20:17 98.2 98 Intake and Output 10/05/16 10/05/16 10/06/16 15:00 23:00 07:00 Intake Total 1300 ml 1615 ml Balance 1300 ml 1615 ml Exam Free Text/Dictation Constitutional: other (awake but unable to communicate or mobilize), No distress, No oriented Psych: anxiety, confusion Head: normocephalic, No atraumatic Eyes: PERRL, nl conjunctiva, No icteric ENMT: nl external ears & nose, No mucosa pink and moist Neck: non-tender (Baseline rigidity), No jvd, No supple Respiratory: normal air movement, No congested cough, No labored breathing Cardiovascular: regular rate and rhythm, No edema Gastrointestinal: non-tender, soft, No distended Musculoskeletal: No joint tenderness, No nl extremities to inspection, No nl gait and stance Extremities: No calf tenderness, No edema, No normal pulses Neurological: No nl mental status, No nl speech, No nl strength Skin: rash or lesions (multiple decubitus ulcerations as per RN note and pictures), No diaphoresis, No nl turgor Results Result Diagram: 10/06/16 0748 10/06/16 0748 KENROY MURILLO MD Oct 06, 2016 17:44
--- NOTE | 2016-10-06 17:46 | OPR ---
Date/Time of Note Date/Time of Note DATE: 10/06/16 TIME: 17:44 Operative Report Procedure Date: Oct 06, 2016 Preoperative Diagnosis 1. Sacral stage IV decubitus ulcer, 5.5 x 5 cm 2. Left lateral malleolus stage IV decubitus ulceration, 1.5 x 1 cm Postoperative Diagnosis 1. Sacral stage IV decubitus ulcer, 5.5 x 5 cm 2. Left lateral malleolus stage IV decubitus ulceration, 1.5 x 1 cm Operation Performed 1. Excisional debridement of sacral skin, subcutaneous, fascia. 5.5 x 5 cm 2. Excisional debridement of left lateral malleolus skin, fascia. 1.5 x 1 cm Surgeon: KENROY MURILLO MD Estimated Blood Loss: minimal Specimens None Tubes/Drains Dressing Complications: None Pt Condition Post Procedure: stable Disposition: other (room) Indications Per notes Usual and customary risks Procedure Description Patient was placed in her own bed. All pressure points well-padded. Timeout was performed. Surgical areas were prepped and draped. Using curet and scalpel the necrotic tissue of sacrum skin subcutaneous and fascia and left lateral malleolus skin and subcutaneous and fascia were debrided to healthier edges. Wound was irrigated and dressed. Patient tolerated procedure well. All counts were correct at the end the operation 2. KENROY MURILLO MD Oct 06, 2016 17:46
[2016-10-06 19:43] VITALS: BP 144/98; RESP 16
[2016-10-06] MEDS: ATORVASTATIN 40 MG TAB PO SCH (22:20)
[2016-10-07] MEDS: ACCUCHECK XX SCH (02:00)
[2016-10-07] MEDS: SOD CHLORIDE 0.45% 1,000 ML IV SCH ×2 (06:05→18:29)
[2016-10-07] MEDS: PANTOPRAZOLE (EC) 40 MG TAB PO SCH (06:05)
--- NOTE | 2016-10-07 07:27 | PN ---
Date/Time of Note Date/Time of Note DATE: 10/07/16 TIME: 07:27 Assessment/Plan VTE Prophylaxis VTE Prophylaxis Intervention: SCD's Lines/Catheters IV C[facility] Type [facility]from [facility] Peripheral IV Urinary Cath still in place: No Assessment/Plan Chief Complaint/Hosp Course ASSESSMENT AND PLAN: 61-year-old female sent in by outside doctor because of abnormal labs and also some failure to thrive. 1. Failure to thrive - seen by ST team - Na + improved. - continue IV fluids. - Monitor her symptoms and vital signs very carefully. 2. Thoracic aneurysm - found on CT chest and also there is lung nodule ( suspicious for malignancy) - f/u pulm consult rec's, family does not want to pursue further care regarding the aneurysm 3. Type 2 diabetes: - sliding scale insulin. 4. Prior strokes. Again, her head CT was negative. - monitor 5. History of asthma, chronic obstructive pulmonary disease. No present issues. Continue DuoNebs p.r.n. 6. Prior history of deep vein thrombosis and pulmonary embolism. Again, she has an inferior vena cava filter in place. Continue to monitor for now. 7. Gastrointestinal prophylaxis - proton pump inhibitor. 8. Deep vein thrombosis prophylaxis. Sequential compression devices. 9. lung mass - highly suspicious for cancer - initially family declined further w/u, however - family now wants to get biopsy - but again was not able to be performed - monitor 10. stage IV ulcers - for possible debridement by surgery team today. Problems: Subjective 24 Hr Interval Summary Free Text/Dictation No acute events overnight. Exam/Review of Systems Vital Signs Vitals Vital Signs Date Time Temp Pulse Resp B/P Pulse Ox O2 Delivery O2 Flow Rate FiO2 10/06/16 19:43 98.3 76 16 144/98 97 10/06/16 09:25 Room Air Intake and Output 10/06/16 10/06/16 10/07/16 15:00 23:00 07:00 Intake Total 1565 ml 770 ml Balance 1565 ml 770 ml Exam GENERAL: The patient is lying in bed, lethargic, no acute distress HEENT: Pupils equal, round, react to light. Extraocular muscles intact. NECK: Supple. No thyromegaly. LUNGS: Clear to auscultation bilaterally. CARDIOVASCULAR: S1, S2 heard. No rubs or gallops. ABDOMEN: Soft, nontender, nondistended. Normal bowel sounds. No rebound or guarding. MUSCULOSKELETAL: She has some muscle wasting noted on the lower extremities, but otherwise no lower extremity edema bilaterally. NEUROLOGIC: No signs of any focal deficits. Results Result Diagram: 10/06/16 0748 10/06/16 0748 Results 24 hrs Laboratory Tests Test 10/06/16 07:48 10/06/16 08:15 10/06/16 09:15 10/06/16 09:46 Anion Gap 10 Basophils # 0.0 Basophils % 0.0 Blood Urea Nitrogen 16 Calcium Level 8.2 L Carbon Dioxide Level 38 H Chloride Level 91 L Creatinine 0.30 L Eosinophils # 0.0 Eosinophils % 0.0 Glucose Level 80 Hematocrit 36.7 L Hemoglobin 11.6 L Lymphocytes # 1.0 Lymphocytes % 31.1 Mean Corpuscular Hemoglobin 29.1 Mean Corpuscular Hemoglobin Concent 31.6 L Mean Corpuscular Volume 92.0 Mean Platelet Volume 10.0 # Monocytes # 0.2 L Monocytes % 5.2 Neutrophils # 2.0 Neutrophils % 63.4 Nucleated Red Blood Cells # 0.0 Nucleated Red Blood Cells % 0.0 Platelet Count 303 Potassium Level 4.5 Red Blood Count 3.99 L Red Cell Distribution Width 16.6 H Sodium Level 134 L White Blood Count 3.1 L Bedside Glucose 65 L 105 190 Test 10/06/16 12:07 10/06/16 17:31 10/06/16 22:22 Bedside Glucose 105 109 96 Medications Medications Current Medications Ondansetron HCl (Zofran Inj) 4 mg Q6H PRN IV NAUSEA AND/OR VOMITING; Start at 16:30 Acetaminophen (Tylenol Tab) 650 mg Q6H PRN PO PAIN LEVEL 1-3 OR FEVER; Start at 16:30 Acetaminophen/ Hydrocodone Bitart ([place] (5/325)) 1 tab Q6H PRN PO MODERATE PAIN LEVEL 4-6; Start 10/02/16 at 16:30 Morphine Sulfate (morphine) 2 mg Q4H PRN IV SEVERE PAIN LEVEL 7-10; Start 10/02 at 16:30 Docusate Sodium (Colace) 100 mg Q12H PRN PO CONSTIPATION; Start 10/02/16 at 16: 30 Magnesium Hydroxide (Milk Of Mag) 30 ml DAILY PRN PO CONSTIPATION; Start at 16:30 Sodium Biphosphate/ Sodium Phosphate (Fleet Enema) 133 ml DAILY PRN [place] CONSTIPATION; Start 10/02/16 at 16:30 Lorazepam (Ativan) 0.5 mg Q6H PRN IV ANXIETY; Start 10/02/16 at 16:30 Hydralazine HCl (Apresoline) 10 mg Q6H PRN IV ELEVATED BLOOD PRESSURE Last administered on 10/06/16 08:48; Admin Dose 10 MG; Start 10/02/16 at 16:30 Nitroglycerin (Nitroglycerin (Sl Tab) 0.4 Mg) 1 tab Q5M PRN SL ANGINA; Start at 16:30 Aspirin (Halfprin) 81 mg DAILY PO Last administered on 10/06/16 08:47; Admin Dose 81 MG; Start 10/03/16 at 09:00 Atorvastatin Calcium (Lipitor) 40 mg HS PO Last administered on 10/06/16 22:20 ; Admin Dose 40 MG; Start 10/02/16 at 21:00 Carvedilol (Coreg) 6.25 mg BID PO Last administered on 10/06/16 22:21; Admin Dose 6.25 MG; Start 10/02/16 at 21:00 Montelukast Sodium (Singulair) 10 mg DAILY PO Last administered on 10/06/16 08: 47; Admin Dose 10 MG; Start 10/03/16 at 09:00 Paroxetine HCl (Paxil) 20 mg DAILY PO Last administered on 10/06/16 08:47; Admin Dose 20 MG; Start 10/03/16 at 09:00 Diagnostic Test (Pha) (Accucheck) 1 ea 02 XX ; Start 10/04/16 at 02:00 Miscellaneous Information 1 ea NOTE XX ; Start 10/03/16 at 11:00 Glucose (Glutose) 15 gm Q15M PRN PO DECREASED GLUCOSE; Start 10/03/16 at 11:00 Glucose (Glutose) 22.5 gm Q15M PRN PO DECREASED GLUCOSE; Start 10/03/16 at 11:00 Dextrose (D50w Syringe) 25 ml Q15M PRN IV DECREASED GLUCOSE; Start 10/03/16 at 11:00 Dextrose (D50w Syringe) 50 ml Q15M PRN IV DECREASED GLUCOSE; Start 10/03/16 at 11:00 Glucagon (Glucagen) 1 mg Q15M PRN IM DECREASED GLUCOSE; Start 10/03/16 at 11:00 Glucose (Glutose) 15 gm Q15M PRN BUCCAL DECREASED GLUCOSE; Start 10/03/16 at 11: 00 Collagenase 1 applic 1 applic DAILY TOP Last administered on 10/06/16 17:39; Admin Dose 1 APPLIC; Start 10/04/16 at 09:00 Sodium Chloride (1/2 NS) 1,000 ml @ 75 mls/hr [id number] IV Last administered on 10/07/16 06:05; Admin Dose 75 MLS/HR; Start 10/04/16 at 10:30 Pantoprazole (Protonix Tab) 40 mg DAILY@06 PO Last administered on 10/07/16 06: 05; Admin Dose 40 MG; Start 10/05/16 at 06:00 FORREST FELTON Oct 07, 2016 07:27
[2016-10-07 07:56] VITALS: RESP 19
[2016-10-07] MEDS: INSULIN ASPART [NOVOLOG] 3 ML PEN SC SCH ×4 (08:11→21:00)
[2016-10-07] MEDS: MONTELUKAST 10 MG TAB PO SCH (08:12)
[2016-10-07] MEDS: ASPIRIN (EC) 81 MG TAB PO SCH (08:12)
[2016-10-07] MEDS: COLLAGENASE 30 GM TUBE TOP SCH (08:13)
[2016-10-07] MEDS: PAROXETINE 20 MG TAB PO SCH (08:16)
[2016-10-07 08:59] LABS: BASOPHILS % 0.3 % (0.0-2.0); HEMATOCRIT 35.1 % (37.0-47.0); HEMOGLOBIN 11.4 g/dl (12.0-16.0); LYMPHOCYTES # 1.1 10^3/ul (0.8-2.9); LYMPHOCYTES % 35.5 % (15.0-51.0); MEAN CORPUSCULAR HEMOGLOBIN 29.7 pg (29.0-33.0); MEAN CORPUSCULAR HGB CONC 32.4 g/dl (32.0-37.0); MEAN CORPUSCULAR VOLUME 91.7 fl (82.0-101.0); MEAN PLATELET VOLUME 7.4 fl (7.4-10.4); MONOCYTE # 0.2 10^3/ul (0.3-0.9); MONOCYTES % 4.8 % (0.0-11.0); NEUTROPHIL # 1.9 10^3/ul (1.6-7.5); NEUTROPHILS % 59.4 % (39.0-77.0); PLATELET COUNT 264 10^3/UL (140-440); RED BLOOD COUNT 3.82 10^6/ul (4.20-5.40); RED CELL DISTRIBUTION WIDTH 18.4 % (11.5-14.5); UNCORRECTED WBC 3.2 10^3/ul (4.8-10.8); WHITE BLOOD COUNT 3.2 10^3/ul (4.8-10.8)
[2016-10-07 09:19] LABS: CONDITION 1; LH ANALYZER COMMENTS 1; POTASSIUM 4.8 mmol/L (3.5-5.1)
[2016-10-07 09:22] LABS: CREATININE 0.25 mg/dl (0.44-1.00)
[2016-10-07 09:23] LABS: CALCIUM 8.1 mg/dl (8.4-10.2)
--- NOTE | 2016-10-07 16:14 | PN ---
Date/Time of Note Date/Time of Note DATE: 10/07/16 TIME: 16:13 Assessment/Plan Lines/Catheters IV Catheter Type (from [facility]): Peripheral IV Zavala in Place (from [facility]): No Assessment/Plan Chief Complaint/Hosp Course 1. Multiple decubitus ulcers with necrotic tissues s/p sequential debridements -offload -nutrition optimization -vit c -local care debridement prn 2. Functional quadriplegia with contracted state with history of previous strokes -Offload -Nutrition optimization -Medical optimization 3. Failure to thrive and persistent chronic decubitus ulcerations. Family was encouraged to place patient in residential however they think she gets better care at home -Nutrition optimization -Offloading -Medical optimization 4. Hypoalbuminemia and hypocalcemia, multifactorial -Nutritional optimization 5. Hyponatremia with possible dehydration -Judicious fluid management and correct slowly 6. Anemia without evidence of acute blood loss -Monitor 7. Type 2 diabetes -Nutrition and medication optimization 8. 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 Incidental discovery of right upper lobe spiculated lesion which is suspicious for primary bronchogenic carcinoma -No tx per family 10. Large thoracic aortic aneurysm -medical optimization Thank you, Problems: Subjective 24 Hr Interval Summary No fevers or chills. No nausea vomiting. No bloating. Positive bowel function. No cough. No seizure. No blood per mouth or rectum. No pyuria. Multiple wounds s /p sequential debridements Exam/Review of Systems Vital Signs Vitals Vital Signs Date Time Temp Pulse Resp B/P Pulse Ox O2 Delivery O2 Flow Rate FiO2 10/07/16 07:56 98.1 63 19 99 10/06/16 09:25 Room Air Intake and Output 10/06/16 10/06/16 10/07/16 15:00 23:00 07:00 Intake Total 1565 ml 770 ml Balance 1565 ml 770 ml Exam Free Text/Dictation Constitutional: other (awake but unable to communicate or mobilize), No distress, No oriented Psych: anxiety, confusion Head: normocephalic, No atraumatic Eyes: PERRL, nl conjunctiva, No icteric ENMT: nl external ears & nose, No mucosa pink and moist Neck: non-tender (Baseline rigidity), No jvd, No supple Respiratory: normal air movement, No congested cough, No labored breathing Cardiovascular: regular rate and rhythm, No edema Gastrointestinal: non-tender, soft, No distended Musculoskeletal: No joint tenderness, No nl extremities to inspection, No nl gait and stance Extremities: No calf tenderness, No edema, No normal pulses Neurological: No nl mental status, No nl speech, No nl strength Skin: rash or lesions (multiple decubitus ulcerations as per RN note and pictures), No diaphoresis, No nl turgor Results Result Diagram: 10/07/16 0843 10/07/16 0843 KENROY MURILLO MD Oct 07, 2016 16:14
[2016-10-07 19:47] VITALS: BP 158/101; RESP 18
[2016-10-07] MEDS: ATORVASTATIN 40 MG TAB PO SCH (21:16)
[2016-10-08] MEDS: ACCUCHECK XX SCH (01:46)
[2016-10-08] MEDS: PANTOPRAZOLE (EC) 40 MG TAB PO SCH (05:46)
[2016-10-08 07:52] LABS: BASOPHILS % 0.4 % (0.0-2.0); EOSINOPHILS % 0.2 % (0.0-7.0); HEMATOCRIT 31.8 % (37.0-47.0); HEMOGLOBIN 10.6 g/dl (12.0-16.0); LYMPHOCYTES # 1.2 10^3/ul (0.8-2.9); LYMPHOCYTES % 30.3 % (15.0-51.0); MEAN CORPUSCULAR HEMOGLOBIN 30.3 pg (29.0-33.0); MEAN CORPUSCULAR HGB CONC 33.3 g/dl (32.0-37.0); MEAN CORPUSCULAR VOLUME 91.2 fl (82.0-101.0); MEAN PLATELET VOLUME 7.7 fl (7.4-10.4); MONOCYTE # 0.2 10^3/ul (0.3-0.9); MONOCYTES % 4.5 % (0.0-11.0); NEUTROPHIL # 2.5 10^3/ul (1.6-7.5); NEUTROPHILS % 64.6 % (39.0-77.0); PLATELET COUNT 241 10^3/UL (140-440); RED BLOOD COUNT 3.49 10^6/ul (4.20-5.40); RED CELL DISTRIBUTION WIDTH 17.7 % (11.5-14.5); UNCORRECTED WBC 3.9 10^3/ul (4.8-10.8); WHITE BLOOD COUNT 3.9 10^3/ul (4.8-10.8)
[2016-10-08 07:54] LABS: CONDITION 1; LH ANALYZER COMMENTS 1
[2016-10-08 07:59] LABS: CREATININE 0.3 mg/dl (0.44-1.00)
[2016-10-08 08:00] LABS: CALCIUM 7.8 mg/dl (8.4-10.2)
[2016-10-08 08:01] VITALS: BP 172/105; RESP 20
[2016-10-08] MEDS: INSULIN ASPART [NOVOLOG] 3 ML PEN SC SCH ×4 (08:15→21:00)
[2016-10-08] MEDS: MONTELUKAST 10 MG TAB PO SCH (08:37)
[2016-10-08] MEDS: PAROXETINE 20 MG TAB PO SCH (08:37)
[2016-10-08] MEDS: ASPIRIN (EC) 81 MG TAB PO SCH (08:37)
[2016-10-08] MEDS: COLLAGENASE 30 GM TUBE TOP SCH (09:00)
--- NOTE | 2016-10-08 09:48 | PN ---
Date/Time of Note Date/Time of Note DATE: 10/08/16 TIME: 09:43 Assessment/Plan VTE Prophylaxis VTE Prophylaxis Intervention: SCD's Lines/Catheters IV Catheter Type (from [facility]): Peripheral IV Urinary Cath still in place: No Assessment/Plan Assessment/Plan 61-year-old female sent in by outside doctor because of abnormal labs and also some failure to thrive. 1. Failure to thrive - seen by ST team - Na + improved. - continue IV fluids. - Monitor her symptoms and vital signs very carefully. 2. Thoracic aneurysm - found on CT chest and also there is lung nodule ( suspicious for malignancy) - f/u pulm consult rec's, family does not want to pursue further care regarding the aneurysm 3. Type 2 diabetes: - sliding scale insulin. 4. Multiple CVA with grave disability. head CT was negative. - monitor - fall precautions 5. Asthma, chronic obstructive pulmonary disease. No present issues. Continue DuoNebs p.r.n. 6. Deep vein thrombosis and pulmonary embolism. Again, she has an inferior vena cava filter in place. Continue to monitor for now. 7. lung mass - highly suspicious for cancer - initially family declined further w/u, however - family now wants to get biopsy - but again was not able to be performed - monitor 8. stage IV ulcers - for possible debridement - defer to surgery 9. Gastrointestinal prophylaxis - proton pump inhibitor. 10. Deep vein thrombosis prophylaxis. Sequential compression devices. dispo - f/u recs, palliative care consult, Hospice for poor prognosis if family makes decision as such. this progress note took greater than 30 minutes to complete Subjective 24 Hr Interval Summary Free Text/Dictation Patient had no overnight events. Awaiting family to make decision on converting patient to comfort care measures. Spoke to the nurse about the care plan. 10 minutes spent. Exam/Review of Systems Vital Signs Vitals Vital Signs Date Time Temp Pulse Resp B/P Pulse Ox O2 Delivery O2 Flow Rate FiO2 10/08/16 08:01 97.6 66 20 172/105 100 10/06/16 09:25 Room Air Intake and Output 10/07/16 10/07/16 10/08/16 15:00 23:00 07:00 Intake Total 1720 ml 945 ml Balance 1720 ml 945 ml Exam Gen Arin: NAD, Alert to self HEENT: facial droop, with patient tracking noted, temporal wasting noted NECK: supple, no thyromegaly THORAX: symmetrical, no obvious deformities CV: S1S2, RRR, no M/G/R Lungs: CTAB no W/C/R/R Abd: soft, NT/ND, +BS, no rebound, no guarding, neg HSM EXT: all extremities with contractures, muscle wasting noted Neuro: aphasic, mumbles, contractures Psych: anxious Skin: decreased turgor Results Result Diagram: 10/08/16 0710 10/08/16 0710 Results 24 hrs Laboratory Tests Test 10/07/16 11:39 10/07/16 16:52 10/07/16 20:38 10/08/16 07:10 Bedside Glucose 137 94 120 Anion Gap 6 L Basophils # 0.0 Basophils % 0.4 Blood Morphology Comment Blood Urea Nitrogen 16 Calcium Level 7.8 L Carbon Dioxide Level 36 H Chloride Level 92 L Creatinine 0.30 L Eosinophils # 0.0 Eosinophils % 0.2 Glucose Level 74 Hematocrit 31.8 L Hemoglobin 10.6 L Lymphocytes # 1.2 Lymphocytes % 30.3 Mean Corpuscular Hemoglobin 30.3 Mean Corpuscular Hemoglobin Concent 33.3 Mean Corpuscular Volume 91.2 Mean Platelet Volume 7.7 Monocytes # 0.2 L Monocytes % 4.5 Neutrophils # 2.5 Neutrophils % 64.6 Nucleated Red Blood Cells # 0.0 Nucleated Red Blood Cells % 0.0 Platelet Count 241 Potassium Level 4.0 Red Blood Count 3.49 L Red Cell Distribution Width 17.7 H Sodium Level 130 L White Blood Count 3.9 #L Test 10/08/16 08:04 10/08/16 08:42 Bedside Glucose 69 L 92 Medications Medications Current Medications Ondansetron HCl (Zofran Inj) 4 mg Q6H PRN IV NAUSEA AND/OR VOMITING; Start at 16:30 Acetaminophen (Tylenol Tab) 650 mg Q6H PRN PO PAIN LEVEL 1-3 OR FEVER; Start at 16:30 Acetaminophen/ Hydrocodone Bitart ([place] (5/325)) 1 tab Q6H PRN PO MODERATE PAIN LEVEL 4-6; Start 10/02/16 at 16:30 Morphine Sulfate (morphine) 2 mg Q4H PRN IV SEVERE PAIN LEVEL 7-10; Start 10/02 at 16:30 Docusate Sodium (Colace) 100 mg Q12H PRN PO CONSTIPATION; Start 10/02/16 at 16: 30 Magnesium Hydroxide (Milk Of Mag) 30 ml DAILY PRN PO CONSTIPATION; Start at 16:30 Sodium Biphosphate/ Sodium Phosphate (Fleet Enema) 133 ml DAILY PRN [place] CONSTIPATION; Start 10/02/16 at 16:30 Lorazepam (Ativan) 0.5 mg Q6H PRN IV ANXIETY; Start 10/02/16 at 16:30 Hydralazine HCl (Apresoline) 10 mg Q6H PRN IV ELEVATED BLOOD PRESSURE Last administered on 10/06/16 08:48; Admin Dose 10 MG; Start 10/02/16 at 16:30 Nitroglycerin (Nitroglycerin (Sl Tab) 0.4 Mg) 1 tab Q5M PRN SL ANGINA; Start at 16:30 Aspirin (Halfprin) 81 mg DAILY PO Last administered on 10/08/16 08:37; Admin Dose 81 MG; Start 10/03/16 at 09:00 Atorvastatin Calcium (Lipitor) 40 mg HS PO Last administered on 10/07/16 21:16 ; Admin Dose 40 MG; Start 10/02/16 at 21:00 Carvedilol (Coreg) 6.25 mg BID PO Last administered on 10/08/16 08:38; Admin Dose 6.25 MG; Start 10/02/16 at 21:00 Montelukast Sodium (Singulair) 10 mg DAILY PO Last administered on 10/08/16 08: 37; Admin Dose 10 MG; Start 10/03/16 at 09:00 Paroxetine HCl (Paxil) 20 mg DAILY PO Last administered on 10/08/16 08:37; Admin Dose 20 MG; Start 10/03/16 at 09:00 Diagnostic Test (Pha) (Accucheck) 1 ea 02 XX ; Start 10/04/16 at 02:00 Miscellaneous Information 1 ea NOTE XX ; Start 10/03/16 at 11:00 Glucose (Glutose) 15 gm Q15M PRN PO DECREASED GLUCOSE; Start 10/03/16 at 11:00 Glucose (Glutose) 22.5 gm Q15M PRN PO DECREASED GLUCOSE; Start 10/03/16 at 11:00 Dextrose (D50w Syringe) 25 ml Q15M PRN IV DECREASED GLUCOSE; Start 10/03/16 at 11:00 Dextrose (D50w Syringe) 50 ml Q15M PRN IV DECREASED GLUCOSE; Start 10/03/16 at 11:00 Glucagon (Glucagen) 1 mg Q15M PRN IM DECREASED GLUCOSE; Start 10/03/16 at 11:00 Glucose (Glutose) 15 gm Q15M PRN BUCCAL DECREASED GLUCOSE; Start 10/03/16 at 11: 00 Collagenase 1 applic 1 applic DAILY TOP Last administered on 10/07/16 08:13; Admin Dose 1 APPLIC; Start 10/04/16 at 09:00 Sodium Chloride (1/2 NS) 1,000 ml @ 75 mls/hr [id number] IV Last administered on 10/07/16 18:29; Admin Dose 75 MLS/HR; Start 10/04/16 at 10:30 Pantoprazole (Protonix Tab) 40 mg DAILY@06 PO Last administered on 10/08/16 05: 46; Admin Dose 40 MG; Start 10/05/16 at 06:00 EVITA CANALES MD Oct 08, 2016 09:48
[2016-10-08] MEDS: SOD CHLORIDE 0.45% 1,000 ML IV SCH ×2 (10:10→21:13)
[2016-10-08 20:07] VITALS: BP 135/94; RESP 18
[2016-10-08] MEDS: ATORVASTATIN 40 MG TAB PO SCH (21:12)
--- NOTE | 2016-10-08 22:38 | PN ---
Date/Time of Note Date/Time of Note DATE: 10/08/16 TIME: 22:37 Assessment/Plan Lines/Catheters IV Catheter Type (from [facility]): Peripheral IV Zavala in Place (from [facility]): No Assessment/Plan Chief Complaint/Hosp Course 1. Multiple decubitus ulcers with necrotic tissues s/p sequential debridements -offload -nutrition optimization -vit c -local care debridement prn 2. Functional quadriplegia with contracted state with history of previous strokes -Offload -Nutrition optimization -Medical optimization 3. Failure to thrive and persistent chronic decubitus ulcerations. Family was encouraged to place patient in [facility] however they think she gets better care at home -Nutrition optimization -Offloading -Medical optimization 4. Hypoalbuminemia and hypocalcemia, multifactorial -Nutritional optimization 5. Hyponatremia with possible dehydration -Judicious fluid management and correct slowly 6. Anemia without evidence of acute blood loss -Monitor 7. Type 2 diabetes -Nutrition and medication optimization 8. 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 Incidental discovery of right upper lobe spiculated lesion which is suspicious for primary bronchogenic carcinoma -No tx per family 10. Large thoracic aortic aneurysm -medical optimization Thank you, Problems: Subjective 24 Hr Interval Summary ?Comfort measures being considered. No fevers or chills. No nausea vomiting. No bloating. Positive bowel function. No cough. No seizure. No blood per mouth or rectum. No pyuria. Multiple wounds s/p sequential debridements Exam/Review of Systems Vital Signs Vitals Vital Signs Date Time Temp Pulse Resp B/P Pulse Ox O2 Delivery O2 Flow Rate FiO2 10/08/16 20:07 97.8 80 18 135/94 95 10/06/16 09:25 Room Air Intake and Output 10/07/16 10/07/16 10/08/16 15:00 23:00 07:00 Intake Total 1720 ml 945 ml Balance 1720 ml 945 ml Exam Free Text/Dictation Constitutional: other (awake but unable to communicate or mobilize), No distress, No oriented Psych: anxiety, confusion Head: normocephalic, No atraumatic Eyes: PERRL, nl conjunctiva, No icteric ENMT: nl external ears & nose, No mucosa pink and moist Neck: non-tender (Baseline rigidity), No jvd, No supple Respiratory: normal air movement, No congested cough, No labored breathing Cardiovascular: regular rate and rhythm, No edema Gastrointestinal: non-tender, soft, No distended Musculoskeletal: No joint tenderness, No nl extremities to inspection, No nl gait and stance Extremities: No calf tenderness, No edema, No normal pulses Neurological: No nl mental status, No nl speech, No nl strength Skin: rash or lesions (multiple decubitus ulcerations as per RN note and pictures), No diaphoresis, No nl turgor Results Result Diagram: 10/08/16 0710 10/08/16 0710 KENROY MURILLO MD Oct 08, 2016 22:38
[2016-10-09] MEDS: ACCUCHECK XX SCH (01:34)
[2016-10-09] MEDS: PANTOPRAZOLE (EC) 40 MG TAB PO SCH (06:20)
[2016-10-09 07:10] VITALS: BP 176/118; RESP 18
[2016-10-09] MEDS: INSULIN ASPART [NOVOLOG] 3 ML PEN SC SCH ×4 (08:15→21:00)
[2016-10-09 08:40] LABS: POTASSIUM 4.2 mmol/L (3.5-5.1)
[2016-10-09 08:42] LABS: BASOPHILS % 0.3 % (0.0-2.0); EOSINOPHILS % 0.2 % (0.0-7.0); HEMATOCRIT 33.1 % (37.0-47.0); HEMOGLOBIN 10.9 g/dl (12.0-16.0); LYMPHOCYTES # 1.5 10^3/ul (0.8-2.9); LYMPHOCYTES % 34.7 % (15.0-51.0); MEAN CORPUSCULAR HEMOGLOBIN 30.1 pg (29.0-33.0); MEAN CORPUSCULAR VOLUME 91.2 fl (82.0-101.0); MEAN PLATELET VOLUME 8.1 fl (7.4-10.4); MONOCYTE # 0.2 10^3/ul (0.3-0.9); MONOCYTES % 4.2 % (0.0-11.0); NEUTROPHIL # 2.5 10^3/ul (1.6-7.5); NEUTROPHILS % 60.6 % (39.0-77.0); PLATELET COUNT 211 10^3/UL (140-440); RED BLOOD COUNT 3.62 10^6/ul (4.20-5.40); UNCORRECTED WBC 4.2 10^3/ul (4.8-10.8); WHITE BLOOD COUNT 4.2 10^3/ul (4.8-10.8)
[2016-10-09 08:43] LABS: CREATININE 0.28 mg/dl (0.44-1.00)
[2016-10-09 08:44] LABS: CALCIUM 7.9 mg/dl (8.4-10.2)
[2016-10-09] MEDS: hydrALAzine 20 MG INJ IV PRN (08:57)
[2016-10-09 08:59] LABS: CONDITION 1; LH ANALYZER COMMENTS 1
[2016-10-09 09:30] VITALS: BP 113/79; PULSE 72; RESP 20
--- NOTE | 2016-10-09 09:35 | PN ---
Date/Time of Note Date/Time of Note DATE: 10/09/16 TIME: 09:29 Assessment/Plan VTE Prophylaxis VTE Prophylaxis Intervention: SCD's Lines/Catheters IV Catheter Type (from [facility]): Peripheral IV Urinary Cath still in place: No Assessment/Plan Assessment/Plan 61-year-old female sent in by outside doctor because of abnormal labs and also some failure to thrive. 1. Failure to thrive - seen by ST team - Na + improved. - continue IV fluids. - Monitor her symptoms and vital signs very carefully. 2. Thoracic aneurysm - found on CT chest and also there is lung nodule ( suspicious for malignancy) - f/u pulm consult rec's, family does not want to pursue further care regarding the aneurysm 3. Type 2 diabetes: - sliding scale insulin. 4. Multiple CVA with grave disability. head CT was negative. - monitor - fall precautions 5. Asthma, chronic obstructive pulmonary disease. No present issues. Continue DuoNebs p.r.n. 6. Deep vein thrombosis and pulmonary embolism. Again, she has an inferior vena cava filter in place. Continue to monitor for now. 7. lung mass - highly suspicious for cancer - initially family declined further w/u, however - family now wants to get biopsy - but again was not able to be performed - monitor 8. stage IV ulcers - for possible debridement - defer to surgery 9. Gastrointestinal prophylaxis - proton pump inhibitor. 10. Deep vein thrombosis prophylaxis. Sequential compression devices. dispo - f/u recs, palliative care consult, Hospice for poor prognosis - re- evaluate as per the sister DPOA this progress note took greater than 30 minutes to complete Subjective 24 Hr Interval Summary Free Text/Dictation Patient had no overnight events. She is status quo. Made DNR/DNI. Spoke to the nurse about the care plan. 10 minutes spent. Exam/Review of Systems Vital Signs Vitals Vital Signs Date Time Temp Pulse Resp B/P Pulse Ox O2 Delivery O2 Flow Rate FiO2 10/09/16 07:10 98.0 70 18 176/118 97 10/06/16 09:25 Room Air Intake and Output 10/08/16 10/08/16 10/09/16 15:00 23:00 07:00 Intake Total 100 ml 2265 ml 450 ml Balance 100 ml 2265 ml 450 ml Exam Gen Arin: NAD, Alert to self HEENT: facial droop, with patient tracking noted, temporal wasting noted NECK: supple, no thyromegaly THORAX: symmetrical, no obvious deformities CV: S1S2, RRR, no M/G/R Lungs: CTAB no W/C/R/R Abd: soft, NT/ND, +BS, no rebound, no guarding, neg HSM EXT: all extremities with contractures, muscle wasting noted Neuro: aphasic, mumbles, contractures, tracks Psych: anxious Skin: decreased turgor Results Result Diagram: 10/09/1673210/09/1633 Results 24 hrs Laboratory Tests Test 10/08/16 11:52 10/08/16 17:25 10/08/16 21:07 10/09/16 07:33 Bedside Glucose 98 113 139 Anion Gap 7 L Basophils # 0.0 Basophils % 0.3 Blood Morphology Comment Blood Urea Nitrogen 17 Calcium Level 7.9 L Carbon Dioxide Level 35 H Chloride Level 92 L Creatinine 0.28 L Eosinophils # 0.0 Eosinophils % 0.2 Glucose Level 73 Hematocrit 33.1 L Hemoglobin 10.9 L Lymphocytes # 1.5 Lymphocytes % 34.7 Mean Corpuscular Hemoglobin 30.1 Mean Corpuscular Hemoglobin Concent 33.0 Mean Corpuscular Volume 91.2 Mean Platelet Volume 8.1 Monocytes # 0.2 L Monocytes % 4.2 Neutrophils # 2.5 Neutrophils % 60.6 Nucleated Red Blood Cells # 0.0 Nucleated Red Blood Cells % 0.0 Platelet Count 211 Potassium Level 4.2 Red Blood Count 3.62 L Red Cell Distribution Width 18.0 H Sodium Level 130 L White Blood Count 4.2 L Test 10/09/16 08:02 Bedside Glucose 75 Medications Medications Current Medications Ondansetron HCl (Zofran Inj) 4 mg Q6H PRN IV NAUSEA AND/OR VOMITING; Start at 16:30 Acetaminophen (Tylenol Tab) 650 mg Q6H PRN PO PAIN LEVEL 1-3 OR FEVER Last administered on 10/08/16t 17:53; Admin Dose 650 MG; Start 10/02/16 at 16:30 Acetaminophen/ Hydrocodone Bitart ([place] (5/325)) 1 tab Q6H PRN PO MODERATE PAIN LEVEL 4-6; Start 10/02/16 at 16:30 Morphine Sulfate (morphine) 2 mg Q4H PRN IV SEVERE PAIN LEVEL 7-10; Start 10/02 at 16:30 Docusate Sodium (Colace) 100 mg Q12H PRN PO CONSTIPATION; Start 10/02/16 at 16: 30 Magnesium Hydroxide (Milk Of Mag) 30 ml DAILY PRN PO CONSTIPATION; Start at 16:30 Sodium Biphosphate/ Sodium Phosphate (Fleet Enema) 133 ml DAILY PRN ID CONSTIPATION; Start 10/02/16 at 16:30 Lorazepam (Ativan) 0.5 mg Q6H PRN IV ANXIETY; Start 10/02/16 at 16:30 Hydralazine HCl (Apresoline) 10 mg Q6H PRN IV ELEVATED BLOOD PRESSURE Last administered on 10/09/16 08:57; Admin Dose 10 MG; Start 10/02/16 at 16:30 Nitroglycerin (Nitroglycerin (Sl Tab) 0.4 Mg) 1 tab Q5M PRN SL ANGINA; Start at 16:30 Aspirin (Halfprin) 81 mg DAILY PO Last administered on 10/08/16 08:37; Admin Dose 81 MG; Start 10/03/16 at 09:00 Atorvastatin Calcium (Lipitor) 40 mg HS PO Last administered on 10/08/16 21:12 ; Admin Dose 40 MG; Start 10/02/16 at 21:00 Carvedilol (Coreg) 6.25 mg BID PO Last administered on 10/08/16 21:13; Admin Dose 6.25 MG; Start 10/02/16 at 21:00 Montelukast Sodium (Singulair) 10 mg DAILY PO Last administered on 10/08/16 08: 37; Admin Dose 10 MG; Start 10/03/16 at 09:00 Paroxetine HCl (Paxil) 20 mg DAILY PO Last administered on 10/08/16 08:37; Admin Dose 20 MG; Start 10/03/16 at 09:00 Diagnostic Test (Pha) (Accucheck) 1 ea 02 XX ; Start 10/04/16 at 02:00 Miscellaneous Information 1 ea NOTE XX ; Start 10/03/16 at 11:00 Glucose (Glutose) 15 gm Q15M PRN PO DECREASED GLUCOSE; Start 10/03/16 at 11:00 Glucose (Glutose) 22.5 gm Q15M PRN PO DECREASED GLUCOSE; Start 10/03/16 at 11:00 Dextrose (D50w Syringe) 25 ml Q15M PRN IV DECREASED GLUCOSE; Start 10/03/16 at 11:00 Dextrose (D50w Syringe) 50 ml Q15M PRN IV DECREASED GLUCOSE; Start 10/03/16 at 11:00 Glucagon (Glucagen) 1 mg Q15M PRN IM DECREASED GLUCOSE; Start 10/03/16 at 11:00 Glucose (Glutose) 15 gm Q15M PRN BUCCAL DECREASED GLUCOSE; Start 10/03/16 at 11: 00 Collagenase 1 applic 1 applic DAILY TOP Last administered on 10/07/16 08:13; Admin Dose 1 APPLIC; Start 10/04/16 at 09:00 Sodium Chloride (1/2 NS) 1,000 ml @ 75 mls/hr [id number] IV Last administered on 10/08/16 21:13; Admin Dose 75 MLS/HR; Start 10/04/16 at 10:30 Pantoprazole (Protonix Tab) 40 mg DAILY@06 PO Last administered on 10/09/16 06: 20; Admin Dose 40 MG; Start 10/05/16 at 06:00 EVITA CANALES MD Oct 09, 2016 09:35
[2016-10-09] MEDS: ASPIRIN (EC) 81 MG TAB PO SCH (09:46)
[2016-10-09] MEDS: COLLAGENASE 30 GM TUBE TOP SCH (09:47)
[2016-10-09] MEDS: MONTELUKAST 10 MG TAB PO SCH (09:47)
[2016-10-09] MEDS: PAROXETINE 20 MG TAB PO SCH (09:47)
[2016-10-09] MEDS: SOD CHLORIDE 0.45% 1,000 ML IV SCH ×2 (10:30→21:10)
--- NOTE | 2016-10-09 14:11 | CONS ---
DATE OF ADMISSION: 10/02/2016 DATE OF CONSULTATION: 10/09/2016 HISTORY OF PRESENT ILLNESS: A 61-year-old female who was admitted to [facility] w ith dehydration and electrolyte abnormalities, past medical history of CVA with extremely bad disab ility who is primarily homebound and 24-hour caregivers by family members. During this hospitalizat ion, she had a CT scan done which showed a very highly suspicious mass appearing to be cancerous in the right lung apex. The patient is once again extremely debilitated, bedridden, history of multip le cerebrovascular accidents in the past, stage IV ulcers. She has been taken care by family member s has had home health care, but according to the patient's daughter, she was only given a 4 week per iod of time home for home health care. MEDICATIONS: Please refer to reconciliation sheets. ALLERGIES: VANCOMYCIN. MAJOR MEDICAL PROBLEMS IN THE PAST: Entirely per history of present illness. SOCIAL HISTORY: Lives at home with family members. REVIEW OF SYSTEMS: Cannot be obtained. PHYSICAL EXAMINATION: GENERAL: Shows an extremely debilitated female who is noncommunicative. VITAL SIGNS: Blood pressure 176/118, pulse of 70 and regular, respirations of 18, temperature 98.0 degrees, 97% saturation on room air. HEENT: She is normocephalic and atraumatic. Anicteric, acyanotic. CHEST: Shows bilateral clear breath sounds throughout both lung foy. COR: S1, S2, without S3, S4, murmur, gallop, rub. Normal rate, normal rhythm. ABDOMEN: Grossly benign on examination. NEUROLOGIC: Does not respond to any verbal commands. She mumbles. She tracks me. She has intact oculocephalics. ASSESSMENT AND PLAN: I had a lengthy conversation with patient's daughter at the bedside, approxima tely an hour and explained to her the severity of her mother's medical problems. We discussed her c urrent medical condition, the fact that she has been debilitated for an extended period of time and seems to be by history continuing to deteriorate. The daughter had multiple questions concerning he r mother's hygienic care during hospitalization and whether or not she is receiving any ongoing ther apy. I tried to redirect her questions more so towards her mother's ongoing level of care and introd uced palliation of care or hospice care for her mother. The patient is a DO NOT RESUSCITATE prior t o this hospitalization, both patient's daughter and sister were there, and sister is the durable pow er of real estate attorney for health care. According to family members, she has paperwork to validate that. A t the end of the conversation, the patient's sister states that she would be willing to speak to hos pice representatives. I conveyed that information to patient's primary care team. Dictated By: DONALDO MENDEZ MD, LP/JUN Conf#: [id number] DID#: [id number]
--- NOTE | 2016-10-09 19:18 | PN ---
Date/Time of Note Date/Time of Note DATE: 10/09/16 TIME: 19:17 Assessment/Plan Lines/Catheters IV Catheter Type (from [facility]): Peripheral IV Zavala in Place (from [facility]): No Assessment/Plan Chief Complaint/Hosp Course 1. Multiple decubitus ulcers with necrotic tissues s/p sequential debridements -offload -nutrition optimization -vit c -local care debridement prn 2. Functional quadriplegia with contracted state with history of previous strokes -Offload -Nutrition optimization -Medical optimization 3. Failure to thrive and persistent chronic decubitus ulcerations. Family was encouraged to place patient in long term however they think she gets better care at home -Nutrition optimization -Offloading -Medical optimization 4. Hypoalbuminemia and hypocalcemia, multifactorial -Nutritional optimization 5. Hyponatremia with possible dehydration -Judicious fluid management and correct slowly 6. Anemia without evidence of acute blood loss -Monitor 7. Type 2 diabetes -Nutrition and medication optimization 8. 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 Incidental discovery of right upper lobe spiculated lesion which is suspicious for primary bronchogenic carcinoma -No tx per family 10. Large thoracic aortic aneurysm -medical optimization Thank you, Problems: Subjective 24 Hr Interval Summary ?Comfort measures being considered. No fevers or chills. No nausea vomiting. No bloating. Positive bowel function. No cough. No seizure. No blood per mouth or rectum. No pyuria. Multiple wounds s/p sequential debridements Exam/Review of Systems Vital Signs Vitals Vital Signs Date Time Temp Pulse Resp B/P Pulse Ox O2 Delivery O2 Flow Rate FiO2 10/09/16 09:30 72 20 113/79 95 Room Air 10/09/16 07:10 98.0 Intake and Output 10/08/16 10/08/16 10/09/16 15:00 23:00 07:00 Intake Total 100 ml 2265 ml 450 ml Balance 100 ml 2265 ml 450 ml Exam Free Text/Dictation Constitutional: other (awake but unable to communicate or mobilize), No distress, No oriented Psych: anxiety, confusion Head: normocephalic, No atraumatic Eyes: PERRL, nl conjunctiva, No icteric ENMT: nl external ears & nose, No mucosa pink and moist Neck: non-tender (Baseline rigidity), No jvd, No supple Respiratory: normal air movement, No congested cough, No labored breathing Cardiovascular: regular rate and rhythm, No edema Gastrointestinal: non-tender, soft, No distended Musculoskeletal: No joint tenderness, No nl extremities to inspection, No nl gait and stance Extremities: No calf tenderness, No edema, No normal pulses Neurological: No nl mental status, No nl speech, No nl strength Skin: rash or lesions (multiple decubitus ulcerations as per RN note and pictures), No diaphoresis, No nl turgor Results Result Diagram: 10/09/16 0733 10/09/16 0733 KENROY MURILLO MD Oct 09, 2016 19:18
[2016-10-09 19:32] VITALS: BP 127/86; RESP 18
[2016-10-09] MEDS: ATORVASTATIN 40 MG TAB PO SCH (21:10)
[2016-10-10] MEDS: ACCUCHECK XX SCH (01:27)
[2016-10-10] MEDS: PANTOPRAZOLE (EC) 40 MG TAB PO SCH (05:55)
[2016-10-10] MEDS: INSULIN ASPART [NOVOLOG] 3 ML PEN SC SCH ×4 (08:04→20:37)
[2016-10-10 08:13] VITALS: BP 175/115; RESP 20
[2016-10-10] MEDS: ASPIRIN (EC) 81 MG TAB PO SCH (08:46)
[2016-10-10] MEDS: COLLAGENASE 30 GM TUBE TOP SCH (08:50)
[2016-10-10] MEDS: PAROXETINE 20 MG TAB PO SCH (08:50)
[2016-10-10] MEDS: MONTELUKAST 10 MG TAB PO SCH (08:50)
[2016-10-10 09:31] LABS: BASOPHILS % 0.4 % (0.0-2.0); EOSINOPHILS % 0.2 % (0.0-7.0); HEMATOCRIT 31.5 % (37.0-47.0); HEMOGLOBIN 10.3 g/dl (12.0-16.0); LYMPHOCYTES # 1.2 10^3/ul (0.8-2.9); LYMPHOCYTES % 28.4 % (15.0-51.0); MEAN CORPUSCULAR HGB CONC 32.7 g/dl (32.0-37.0); MEAN CORPUSCULAR VOLUME 91.8 fl (82.0-101.0); MEAN PLATELET VOLUME 7.9 fl (7.4-10.4); MONOCYTE # 0.3 10^3/ul (0.3-0.9); MONOCYTES % 5.8 % (0.0-11.0); NEUTROPHIL # 2.8 10^3/ul (1.6-7.5); NEUTROPHILS % 65.2 % (39.0-77.0); PLATELET COUNT 200 10^3/UL (140-440); RED BLOOD COUNT 3.43 10^6/ul (4.20-5.40); RED CELL DISTRIBUTION WIDTH 17.6 % (11.5-14.5); UNCORRECTED WBC 4.4 10^3/ul (4.8-10.8); WHITE BLOOD COUNT 4.4 10^3/ul (4.8-10.8)
[2016-10-10 09:39] LABS: CONDITION 1; LH ANALYZER COMMENTS 1
[2016-10-10 09:41] LABS: CREATININE 0.24 mg/dl (0.44-1.00)
--- NOTE | 2016-10-10 09:41 | PN ---
Date/Time of Note Date/Time of Note DATE: 10/10/16 TIME: 09:39 Assessment/Plan VTE Prophylaxis VTE Prophylaxis Intervention: SCD's Lines/Catheters IV [facility]ter Type (from [facility]): Peripheral IV Urinary Cath still in place: No Assessment/Plan Assessment/Plan 61-year-old female sent in by outside doctor because of abnormal labs and also some failure to thrive. 1. Failure to thrive - seen by ST team - Na + improved. - labs pending - continue IV fluids. - Monitor her symptoms and vital signs very carefully. 2. Thoracic aneurysm - found on CT chest and also there is lung nodule ( suspicious for malignancy) - f/u pulm consult rec's, family does not want to pursue further care regarding the aneurysm 3. Type 2 diabetes: - sliding scale insulin. 4. Multiple CVA with grave disability. head CT was negative. - monitor - fall precautions 5. Asthma, chronic obstructive pulmonary disease. No present issues. Continue DuoNebs p.r.n. 6. Deep vein thrombosis and pulmonary embolism. Again, she has an inferior vena cava filter in place. Continue to monitor for now. 7. lung mass - highly suspicious for cancer - initially family declined further w/u, however - family now wants to get biopsy - but again was not able to be performed - monitor 8. stage IV ulcers - for possible debridement - defer to surgery 9. Gastrointestinal prophylaxis - proton pump inhibitor. 10. Deep vein thrombosis prophylaxis. Sequential compression devices. dispo - f/u recs, palliative care consult, Hospice for poor prognosis - re- evaluate as per the sister DPOA - awaiting final decision this progress note took greater than 20 minutes to complete Subjective 24 Hr Interval Summary Free Text/Dictation Patient had no overnight events. As per nursing, multiple hospice's had came to talk to the family about the care plan. Still in discussions about the care plan. spoke to the nurse about the care plan. 15 minutes spent. Exam/Review of Systems Vital Signs Vitals Vital Signs Date Time Temp Pulse Resp B/P Pulse Ox O2 Delivery O2 Flow Rate FiO2 10/10/16 08:13 95.6 76 20 175/115 90 10/09/16 09:30 Room Air Intake and Output 10/09/16 10/09/16 10/10/16 15:00 23:00 07:00 Intake Total 550 ml 600 ml Output Total 5 ml Balance 550 ml 595 ml Exam Gen Arin: NAD, Alert to self HEENT: facial droop, with patient tracking noted, temporal wasting noted NECK: supple, no thyromegaly THORAX: symmetrical, no obvious deformities CV: S1S2, RRR, no M/G/R Lungs: CTAB no W/C/R/R Abd: soft, NT/ND, +BS, no rebound, no guarding, neg HSM EXT: all extremities with contractures, muscle wasting noted Neuro: aphasic, mumbles, contractures, tracks Psych: withdrawn Skin: decreased turgor Results Result Diagram: 10/09/16 0733 10/09/16 0733 Results 24 hrs Laboratory Tests Test 10/09/16 12:36 10/09/16 17:12 10/09/16 21:13 10/10/16 08:03 Bedside Glucose 169 122 111 73 Medications Medications Current Medications Ondansetron HCl (Zofran Inj) 4 mg Q6H PRN IV NAUSEA AND/OR VOMITING; Start at 16:30 Acetaminophen (Tylenol Tab) 650 mg Q6H PRN PO PAIN LEVEL 1-3 OR FEVER Last administered on 10/08/16 17:53; Admin Dose 650 MG; Start 10/02/16 at 16:30 Acetaminophen/ Hydrocodone Bitart ([place] (5/325)) 1 tab Q6H PRN PO MODERATE PAIN LEVEL 4-6; Start 10/02/16 at 16:30 Morphine Sulfate (morphine) 2 mg Q4H PRN IV SEVERE PAIN LEVEL 7-10; Start 10/02 at 16:30 Docusate Sodium (Colace) 100 mg Q12H PRN PO CONSTIPATION; Start 10/02/16 at 16: 30 Magnesium Hydroxide (Milk Of Mag) 30 ml DAILY PRN PO CONSTIPATION; Start at 16:30 Sodium Biphosphate/ Sodium Phosphate (Fleet Enema) 133 ml DAILY PRN [place] CONSTIPATION; Start 10/02/16 at 16:30 Lorazepam (Ativan) 0.5 mg Q6H PRN IV ANXIETY; Start 10/02/16 at 16:30 Hydralazine HCl (Apresoline) 10 mg Q6H PRN IV ELEVATED BLOOD PRESSURE Last administered on 10/09/16 08:57; Admin Dose 10 MG; Start 10/02/16 at 16:30 Nitroglycerin (Nitroglycerin (Sl Tab) 0.4 Mg) 1 tab Q5M PRN SL ANGINA; Start at 16:30 Aspirin (Halfprin) 81 mg DAILY PO Last administered on 10/10/16 08:46; Admin Dose 81 MG; Start 10/03/16 at 09:00 Atorvastatin Calcium (Lipitor) 40 mg HS PO Last administered on 10/09/16 21:10 ; Admin Dose 40 MG; Start 10/02/16 at 21:00 Carvedilol (Coreg) 6.25 mg BID PO Last administered on 10/10/16 08:50; Admin Dose 6.25 MG; Start 10/02/16 at 21:00 Montelukast Sodium (Singulair) 10 mg DAILY PO Last administered on 10/10/16 08: 50; Admin Dose 10 MG; Start 10/03/16 at 09:00 Paroxetine HCl (Paxil) 20 mg DAILY PO Last administered on 10/10/16 08:50; Admin Dose 20 MG; Start 10/03/16 at 09:00 Diagnostic Test (Pha) (Accucheck) 1 ea 02 XX ; Start 10/04/16 at 02:00 Miscellaneous Information 1 ea NOTE XX ; Start 10/03/16 at 11:00 Glucose (Glutose) 15 gm Q15M PRN PO DECREASED GLUCOSE; Start 10/03/16 at 11:00 Glucose (Glutose) 22.5 gm Q15M PRN PO DECREASED GLUCOSE; Start 10/03/16 at 11:00 Dextrose (D50w Syringe) 25 ml Q15M PRN IV DECREASED GLUCOSE; Start 10/03/16 at 11:00 Dextrose (D50w Syringe) 50 ml Q15M PRN IV DECREASED GLUCOSE; Start 10/03/16 at 11:00 Glucagon (Glucagen) 1 mg Q15M PRN IM DECREASED GLUCOSE; Start 10/03/16 at 11:00 Glucose (Glutose) 15 gm Q15M PRN BUCCAL DECREASED GLUCOSE; Start 10/03/16 at 11: 00 Collagenase 1 applic 1 applic DAILY TOP Last administered on 10/10/16 08:50; Admin Dose 1 APPLIC; Start 10/04/16 at 09:00 Sodium Chloride (1/2 NS) 1,000 ml @ 75 mls/hr [id number] IV Last administered on 10/09/16 21:10; Admin Dose 75 MLS/HR; Start 10/04/16 at 10:30 Pantoprazole (Protonix Tab) 40 mg DAILY@06 PO Last administered on 10/10/16 05: 55; Admin Dose 40 MG; Start 10/05/16 at 06:00 EVITA CANALES MD Oct 10, 2016 09:41
[2016-10-10 09:42] LABS: CALCIUM 7.8 mg/dl (8.4-10.2)
[2016-10-10] MEDS: SOD CHLORIDE 0.45% 1,000 ML IV SCH (11:21)
[2016-10-10 19:42] VITALS: BP 141/87; RESP 18
[2016-10-10] MEDS: ATORVASTATIN 40 MG TAB PO SCH (20:36)
[2016-10-11] MEDS: SOD CHLORIDE 0.45% 1,000 ML IV SCH (01:28)
[2016-10-11] MEDS: ACCUCHECK XX SCH (01:28)
[2016-10-11] MEDS: PANTOPRAZOLE (EC) 40 MG TAB PO SCH (06:22)
[2016-10-11 06:29] LABS: POTASSIUM 3.9 mmol/L (3.5-5.1)
[2016-10-11 06:32] LABS: CREATININE 0.4 mg/dl (0.44-1.00)
[2016-10-11 06:33] LABS: CALCIUM 7.5 mg/dl (8.4-10.2)
[2016-10-11 07:13] LABS: BASOPHILS % 0.3 % (0.0-2.0); EOSINOPHILS % 0.1 % (0.0-7.0); HEMATOCRIT 27.8 % (37.0-47.0); HEMOGLOBIN 9.3 g/dl (12.0-16.0); LYMPHOCYTES # 1.2 10^3/ul (0.8-2.9); LYMPHOCYTES % 23.6 % (15.0-51.0); MEAN CORPUSCULAR HEMOGLOBIN 30.4 pg (29.0-33.0); MEAN CORPUSCULAR HGB CONC 33.3 g/dl (32.0-37.0); MEAN CORPUSCULAR VOLUME 91.5 fl (82.0-101.0); MEAN PLATELET VOLUME 8.3 fl (7.4-10.4); MONOCYTE # 0.4 10^3/ul (0.3-0.9); MONOCYTES % 8.8 % (0.0-11.0); NEUTROPHIL # 3.3 10^3/ul (1.6-7.5); NEUTROPHILS % 67.2 % (39.0-77.0); PLATELET COUNT 198 10^3/UL (140-440); RED BLOOD COUNT 3.04 10^6/ul (4.20-5.40); RED CELL DISTRIBUTION WIDTH 18.4 % (11.5-14.5)
[2016-10-11 07:24] LABS: CONDITION 1; LH ANALYZER COMMENTS 1
[2016-10-11 07:25] VITALS: BP 161/106; RESP 20
[2016-10-11] MEDS: INSULIN ASPART [NOVOLOG] 3 ML PEN SC SCH ×2 (08:15→11:59)
--- NOTE | 2016-10-11 09:36 | PDOCDIS ---
Discharge Instructions DIAGNOSIS Discharge Diagnosis: FTT CONDITION Patient Condition: Guarded HOME CARE INSTRUCTIONS: Special Diet: Puree Diet ACTIVITY: Activity Restrictions: Slowly Increase Activity Avoid heavy lifting FOLLOW UP/APPOINTMENTS Appointments Follow up with [facility] - and primary care physician OTHER ORDERS: Other Orders: FTT - overall prognosis is poor - life expectancy < 6 months EVITA CANALES MD Oct 11, 2016 09:36
[2016-10-11] MEDS: PAROXETINE 20 MG TAB PO SCH (09:45)
[2016-10-11] MEDS: ASPIRIN (EC) 81 MG TAB PO SCH (09:45)
[2016-10-11] MEDS: COLLAGENASE 30 GM TUBE TOP SCH (09:46)
[2016-10-11] MEDS: MONTELUKAST 10 MG TAB PO SCH (09:48)
--- NOTE | 2016-10-11 10:41 | DS ---
DATE OF ADMISSION: 10/02/2016 DATE OF DISCHARGE: 10/11/2016 DISCHARGE DIAGNOSES: 1. Failure to thrive. 2. Aneurysm. 3. Type 2 diabetes. 4. Multiple cerebrovascular accidents with grave disability. 5. Asthma. 6. Chronic obstructive pulmonary disease. 7. Deep venous thrombosis. 8. Pulmonary embolism. 9. Lung mass, most likely highly suspicious for cancer. 10. Stage IV ulcers. HOSPITAL COURSE: An unfortunate 61-year-old female with past medical history of COPD, asthma, pulmo nary edema, prior strokes, DVT and PE with prior IVC filter placement, prior intracranial bleed, hig h cholesterol, type 2 diabetes, brought in because of saw her primary care physician, ab Wilfrido out a week ago and BMP was noted to have dehydration and generalized weakness. She was subsequently admitted to med/surg for further evaluation and treatment. CONSULTANTS ON THE CASE: Surgery, pulmonology and palliative care. The patient did have a 2D echocardiogram completed showin. Normal left ventricular wall thickness, mild global left ventricular systolic dysfunction, eject ion fraction visually estimated at 40%, stage I diastolic dysfunction. 2. Mitral valve leaflets appear mildly thickened, mild mitral annular calcification, mild mitral va lve regurgitation. 3. Aortic cusp appeared mildly calcified, trace aortic valve regurgitation. 4. Normal appearance and function of the tricuspid valve with trace physiological regurgitation. E stimated peak PA systolic pressure 22 mmHg. INITIAL IMAGING: A CT of the brain showed: 1. No acute intracranial hemorrhage or acute territorial infarct. 2. Multiple bilateral basal ganglial bilateral thalamic left cerebellar and right pontine lacunar i nfarcts. 3. Advanced for age cortical and central atrophy. 4. 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 5. Moderate cerebral artery sclerosis. Chest x-ray shows: 1. Suspect aneurysmal dilatation of thoracic aorta, recommend chest CT for further evaluation. 2. Mild cardiomegaly and sclerotic aortic calcifications. 3. No CHF or pneumonia. Chest CTA was showin. Large aortic aneurysm measuring up to 67 mm. 2. A 17 mm spiculated nodule on the right apex representing neoplasm until proven otherwise. 3. Bilateral small pleural effusions and atelectasis, right greater than left. 4. Ascites. Initial labs on this patient had shown a white count 3.6, H and H 10.7 and 33.5, platelets 340. Cur rent labs showing a white count of 5.0, H and H 9.3 and 27.8, platelets of 198. Chemistry: Initial sodium was 130, potassium 4.9, chloride of 91, carbon dioxide , anion gap 11, BUN of 19, creat inine 0.26, calcium 8.1. Total bilirubin is 0.1, direct bilirubin 0.0, indirect bilirubin 0.1, AST of 85, ALT of 67, alkaline phosphatase of 83. Troponin I is less than 0.012. Current BMP: Sodium is 134, BUN and creatinine 25 and 0.36. Coags were within normal limits. Urine was negative. MICROBIOLOGY: Urine culture, blood cultures are all negative. The patient subsequently overall function is declining and with the assistance of palliative care, t he patient was recommended for hospice at this time because of poor prognosis. On other records ope rative, sacral ulcers decubitus with excisional debridement of sacral skin and left lateral sk in was completed as well. Otherwise, the patient's family has agreed to put the patient on hospice at this time, the DPOA, which is the sister. DISPOSITION: To home with home hospice. CONDITION: Poor. DISCHARGE MEDICATIONS: As per hospice. FOLLOWUP: The patient will follow up with primary care physician and her hospice doctor at this [facility], with [facility]. The patient's family and consultants were made aware of this plan. COORDINATION OF DISCHARGE: Greater than 40 minutes. Dictated By: EVITA MAY/JUN Conf#: [id number] DID#: [id number]
== END 2016-10-11 13:30 | disposition hospice, home (50) | DRG 622 ==
LOC: E/R 12:34 → MS2 14:27
PROVIDERS: ADMIT Family Medicine; ATTEND Family Medicine
PROC: 0JB70ZZ Excision of Back Subcutaneous Tissue and Fascia, Open Approach (ICD-10-PCS; principal; 2016-10-06)
PROC: 0PBK0ZZ Excision of Right Ulna, Open Approach (ICD-10-PCS; 2016-10-06)
PROC: 0JBR0ZZ Excision of Left Foot Subcutaneous Tissue and Fascia, Open Approach (ICD-10-PCS; 2016-10-06)
PROC: 0JBL0ZZ Excision of Right Upper Leg Subcutaneous Tissue and Fascia, Open Approach (ICD-10-PCS; 2016-10-06)
DX: E86.0 Dehydration (principal); L89.154 Pressure ulcer of sacral region, stage 4; L89.014 Pressure ulcer of right elbow, stage 4; L89.214 Pressure ulcer of right hip, stage 4; R64 Cachexia; L89.224 Pressure ulcer of left hip, stage 4; L89.524 Pressure ulcer of left ankle, stage 4; R53.2 Functional quadriplegia; L89.523 Pressure ulcer of left ankle, stage 3; E11.8 Type 2 diabetes mellitus with unspecified complications; L89.513 Pressure ulcer of right ankle, stage 3; Z68.1 Body mass index [BMI] 19.9 or less, adult; L89.101 Pressure ulcer of unspecified part of back, stage 1; E87.1 Hypo-osmolality and hyponatremia; L89.010 Pressure ulcer of right elbow, unstageable; L89.891 Pressure ulcer of other site, stage 1; Z86.73 Personal history of transient ischemic attack (TIA), and cerebral infarction without residual deficits; J44.9 Chronic obstructive pulmonary disease, unspecified; J45.909 Unspecified asthma, uncomplicated; Z86.711 Personal history of pulmonary embolism; Z86.718 Personal history of other venous thrombosis and embolism; D64.9 Anemia, unspecified; I71.2 Thoracic aortic aneurysm, without rupture; Z66 Do not resuscitate; E11.9 Type 2 diabetes mellitus without complications; E88.09 Other disorders of plasma-protein metabolism, not elsewhere classified; D49.1 Neoplasm of unspecified behavior of respiratory system
CPT/HCPCS: 36415; 70450; 71010; 71275; 80048; 80053; 81003; 82962; 83605; 84439; 84484; 85025; 85610; 85730; 87040; 87086; 92526; 92610; 93005; 93306; 96361; 96374; 96375; 97161; 97165; A4310; C9113; J0360; J1200; J1815; J3370; J7030; J7040; P9612; Q9967